=== PATIENT | male | born 1955 | race Caucasian/White ===

== ENCOUNTER → 2020-07-25 17:55 | Outpatient (BNVA) | payer MEDICARE, SELFPAY | PROVIDERS: PCP Physician Assistant Medical; Visit Provider Surgery | DX: Z20.828 Contact with and (suspected) exposure to other viral communicable diseases (principal); Z01.812 Encounter for preprocedural laboratory examination | CPT/HCPCS: 87635 ==

== ENCOUNTER 2020-07-29 09:05 | Day surgery (SDC) | payer MEDICARE, SELFPAY ==
[2020-07-29 09:16] VITALS: BP 134/73; PULSE 54; RESP 18; O2SAT 99
[2020-07-29 09:35] LABS: Glucose Point of Care 142 mg/dL (70-110)
[2020-07-29] MEDS: sodium chloride 0.9% 1,000 ML 30 ML IV (09:35)
--- NOTE | 2020-07-29 09:39 | ANES.PREANE2 ---
Pre-Anesthetic Assessment Pre-Anesthetic Assessment: Height/Weight: Height 1.7 m Weight 141.067 kg Pulse Resp BP Pulse Ox 54 L 18 134/73 99 07/29/20 09:16 07/29/20 09:16 07/29/20 09:16 07/29/20 09:16 Preop Diagnosis: hematochezia Proposed Procedure: Operation Date: 07/29/20 10:00 Proposed Procedures p Colonoscopy 80012 k92.1(Not Applicable) - Gordon Alcantara MD Familial anesthetic complications: None Was Beta Roni taken within 24 hours: Yes Last intake: Intake Last Liquid Date 07/28/20 Last Liquid Time 21:00 Last Solid Date 07/27/20 Social: Social History: No alcohol and No tobacco Comment: former smoker Exam: Pre-Anes Outpt Exam: alert, oriented x 3, clear to auscultation bilaterally and regular rate & rhythm Airway: Cervical ROM: WNL MP: 3 Dentition: False CV/HEM: CV/HEM: Afib, HTN, [place] (2-3 years ago) and PVD Comments: AAA ( mild) Stent in leg on plavix - last took 2 days ago echo 2013 - unremarkable Metabolic: Metabolic: DM, Hyperlipidemia and Morbid obesity Anesthetic Plan: ASA status: 3 Anesthesia: MAC Risk of > 500 ml blood loss (7ml/kg in children): No Meds/Allergies Current Medications: Current Medications Generic Name Dose Route Start Last Admin Trade Name Freq PRN Reason Stop Dose Admin Sodium Chloride 1,000 mls @ 30 ml s/hr 07/29/20 09:30 07/29/20 09:35 Sodium Chloride 0.9% IV 07/30/20 09:29 30 mls/hr .Q24H MANUEL Administration PFSH Anesthesia PFSH: Medical History (Updated 07/14/20 @ 13:49 by Gordon Alcantara MD) Diabetes mellitus Dyslipidemia HTN (hypertension), benign Surgical History (Updated 07/14/20 @ 11:18 by Gordon Alcantara MD) H/O circumcision H/O colonoscopy 2016 History of rectal surgery Family History Other CAD (coronary artery disease) Cancer Diabetes Hypertension Denies family history of Anesthesia complication Bleeding disorder Social History Smoking and tobacco status: never smoked Alcohol intake: current Alcohol intake frequency: holidays/special occasions only Household members: spouse Marital status: Current occupational status: disabled History of recent travel: No Data Anesthesia Other Labs: Laboratory Results - last 48 hr 07/29/20 09:30 POC Glucose 142 Cardiac Studies: No Data to Display
--- NOTE | 2020-07-29 09:52 | W.PM.OPSUD ---
Surgery/Procedure H&P Update DATE OF PROCEDURE: July 29, 2020 DATE H&P PERFORMED: 07/14/20 H&P UPDATE INFORMATION: I have reviewed H&P completed within last 30 days, I have examined patient prior to procedure and No changes to prior documentation PREOP DIAGNOSIS: hematochezia PLANNED PROCEDURE: Operation Date: 07/29/20 10:00 Proposed Procedures p Colonoscopy 84982 k92.1(Not Applicable) - Gordon Alcantara MD
[2020-07-29 11:16] VITALS: BP 175/92; PULSE 54; RESP 16; TEMP 36.2; O2SAT 97
--- NOTE | 2020-07-29 11:30 | ANE.PACU2 ---
Inpatient post-anesthesia follow up: Airway intact: Yes Vital signs: Temperature 97.1 F Pulse Rate 53 Respiratory Rate 18 Blood Pressure 147/77 Pulse Oximetry 97 Oxygen Delivery Me thod Room Air Oxygen Flow Rate 2 Fraction of Inspir ed Oxygen Hydration adequate: Yes Nausea and vomiting: No Pain level: 1 Mental status: Baseline
[2020-07-29 11:39] VITALS: BP 147/77; PULSE 53; RESP 18; O2SAT 97
== END 2020-07-29 11:45 | disposition home or self-care (01) ==
PROVIDERS: PCP Physician Assistant Medical; Visit Provider Surgery
PROC: 0DJD8ZZ Inspection of Lower Intestinal Tract, Via Natural or Artificial Opening Endoscopic (ICD-10-PCS; CPT 45378; principal; 2020-07-29 10:00)
DX: K92.1 Melena (principal); K57.30 Diverticulosis of large intestine without perforation or abscess without bleeding; K64.8 Other hemorrhoids; K63.5 Polyp of colon; Z87.891 Personal history of nicotine dependence; I48.91 Unspecified atrial fibrillation; I10 Essential (primary) hypertension; I25.2 Old myocardial infarction; Z79.02 Long term (current) use of antithrombotics/antiplatelets; E11.9 Type 2 diabetes mellitus without complications; E78.5 Hyperlipidemia, unspecified; E66.01 Morbid (severe) obesity due to excess calories; Z68.42 Body mass index [BMI] 45.0-49.9, adult
CPT/HCPCS: 12345; 36416; 45378; 82962; J7030

== ENCOUNTER 2021-01-27 10:43 | Observation (INO) | payer MEDICARE, SELFPAY ==
[2021-01-27] VITALS (31 sets, daily range): BP systolic 106–152; BP diastolic 70–98; PULSE 64–103; RESP 14–33; TEMP 36.5–36.7; O2SAT 95–99; BMI 40.7
--- NOTE | 2021-01-27 11:12 | XRR_ITS ---
PROCEDURE INFORMATION: Exam: XR Chest Exam date and time: 01/27/2021 11:32 AM Age: 65 years old Clinical indication: Pain; Chest pressure; Patient HX: Heart racing; Additional info: Chest pain TECHNIQUE: Imaging protocol: XR of the chest. Views: 1 view. COMPARISON: CR Chest 1 [place] [id number] 03/03/2018 11:46 PM FINDINGS: Lungs: Unremarkable. No consolidation. Pleural spaces: Unremarkable. No pleural effusion. No pneumothorax. Heart/Mediastinum: Unremarkable. No cardiomegaly. Bones/joints: Unremarkable. XR/XR chest 1V portable [id number] IMPRESSION: No acute findings.
--- NOTE | 2021-01-27 11:13 | ECG_ITS ---
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 Measurements Intervals [place] Rate: 84 P: [place]: QRS: 71 QRSD: 98 T: 51 QT: 365 QTc: 433 Interpretive Statements ATRIAL FIBRILLATION Compared to ECG 03/03/2018 23:50:13 Sinus rhythm no longer present Electronically Signed On 01-27-2021 18:56:37 CDT by Ladarius Willson M.D. [id number]
--- NOTE | 2021-01-27 11:21 | W.ED.GENADLT ---
HPI - General Adult General: Chief complaint: General Medical Stated complaint: SENT BY PCP/ABD EKG, CP, L ARM PAIN Time Seen by Provider: 01/27/21 10:47 History of Present Illness: HPI narrative: 65-year-old male comes in complaining of discomfort he was at his primary care doctor's office and an abnormal EKG and was sent here he has had a little bit of chest heaviness. He has a history of coronary disease and peripheral artery disease he is a former stroke smoker he still does chew tobacco he is diabetic. EKG from the primary care office has A. fib which according to the note from the PA who seen him is a new finding for him he does not have a history of A. fib. Onset (ago): hour(s) Location: chest Radiation: non-radiation Severity: mild Quality: aching Relieving factors: none Exacerbating factors: none Associated symptoms: Reports chest pain, malaise, nausea and weakness; Deny confusion, cough, diaphoresis, decreased appetite, dyspnea, fevers/chills, headache(s), rash, palpitations, seizures, short of breath, syncope or vomiting Treatments prior to arrival: none Review of Systems Const: Reports: malaise; Denies: diaphoresis ENMT: Denies: throat pain, ear or mastoid pain, nasal discharge or nasal congestion Card: Reports: chest pain; Denies: palpitations or syncope Resp: Denies: dyspnea GI: Reports: nausea; Denies: vomiting : Denies: flank pain, dysuria, urinary frequency or urinary urgency Skin/Breast: Denies: rash Neuro: Denies: headache(s) or confusion PFS ED PFSH: Medical History Diabetes mellitus Dyslipidemia HTN (hypertension), benign Surgical History H/O circumcision H/O colonoscopy (07/29/20) History of rectal surgery Family History Other CAD (coronary artery disease) Cancer Diabetes Hypertension Denies family history of Anesthesia complication Bleeding disorder Social History Smoking and tobacco status: never smoked Alcohol intake: current Alcohol intake frequency: holidays/special occasions only Household members: spouse Marital status: Current occupational status: disabled History of recent travel: No Physical Exam Const: COMMON NORMALS: no acute distress GENERAL APPEARANCE: cooperative and comfortable ORIENTATION/CONSCIOUSNESS: Yes awake, Yes oriented to person, Yes oriented to place and Yes oriented to time HENMT: COMMON NORMALS: normocephalic, atraumatic, hearing grossly normal bilaterally and external ears normal HEAD & SCALP: normocephalic and atraumatic EXTERNAL EAR: Yes external ears normal Neck/C-Spine: COMMON NORMALS: no JVD Resp: COMMON NORMALS: normal respiratory effort, No retractions, No use of accessory muscles and clear to auscultation bilaterally AUSCULTATION: clear to auscultation bilaterally Cardio: COMMON NORMALS: no JVD, regular rate, regular rhythm and No murmurs present (Cardio) RATE: regular rate RHYTHM: regular rhythm GI: COMMON NORMALS: Soft to palpation and No hepatosplenomegaly present AUSCULTATION: Yes normoactive bowel sounds PALPATION: Yes Soft to palpation, No Tenderness to palpation present (GI), No Guarding due to palpation present (GI) and Yes No hepatosplenomegaly present Extremity: COMMON NORMALS: normal to inspection, capillary refill normal, no clubbing, cyanosis or edema, no calf tenderness and no pedal edema Neuro: SENSORIUM/ORIENTATION: Yes oriented to person, Yes oriented to place and Yes oriented to time Skin: COMMON NORMALS: no rashes or lesions noted GENERAL SKIN EXAM: no rashes or lesions noted Course Vital Signs: Vital signs: Vital Signs Temperature 97.8 F 01/28/21 02:50 Pulse Rate 59 L 01/28/21 10:35 Respiratory Rate 16 01/28/21 10:35 Blood Pressure 135/75 01/28/21 10:35 Pulse Oximetry 99 01/28/21 10:35 MDM - General Adult MDM Narrative: Medical decision making narrative: Chest discomfort new onset A. fib we will go ahead and admit for work-up for the A. fib and evaluation for the chest discomfort. Lab Data: Labs: Lab Results 01/27/21 01/27/21 01/27/21 Range/Units 12:29 12:29 12:29 WBC 7.9 (4.0-10.0) 10^3/ uL RBC 5.10 (4.1-5.3) 10^6/u L Hgb 14.6 (11.7-16.6) g/dL Hct 45.6 (42.0-52.0) % MCV 89.4 (80-94) fL MCH 28.6 (28.0-34.0) pg MCHC 32.0 (30.0-36.0) g/dL RDW 13.3 (12.1-15.1) % Plt Count 178 (130-400) 10^3/c mm MPV 11.7 H (7.4-10.4) fL Neut % (Auto) 62.6 % Lymph % (Auto) 26.1 % [place] % (Auto) 8.9 % Eos % (Auto) 1.7 % Baso % (Auto) 0.4 % Neut # (Auto) 4.93 (1.8-7.7) 10^3/u L Lymph # (Auto) 2.1 (0.8-4.8) 10^3/u L [place] # (Auto) 0.7 (0.2-0.9) 10^3/u L Eos # (Auto) 0.1 (0.0-0.8) 10^3/u L Baso # (Auto) 0.0 (0.0-0.1) 10^3/u L Nucleated RBC % (a uto) 0 % Nucleated RBCs # 0.0 /100WBC Sodium 138 (136-145) mmol/L Potassium 4.8 (3.5-5.1) mmol/L Chloride 101 (98-107) mmol/L Carbon Dioxide 25 (22-29) mmol/L Anion Gap 16.8 (5-19) BUN 16 (8-23) mg/dL Creatinine 0.8 (0.7-1.2) mg/dL GFR Calculation 97.0 (90-130) mL/min Glucose 122 H (65-115) mg/dL Calculated Osmolal ity 288 (285-295) mOsm/k g Calcium 9.0 (8.5-10.5) mg/dL Total Bilirubin 0.4 (0.15-1.2) mg/dL AST 19 (0-40) U/L ALT 24 (0-41) U/L Alkaline Phosphata se 61 (40-130) IU/L Troponin T Baselin e 9 (0-15) ng/L Troponin T 120 Min [place] (0-15) ng/L Delta Troponin T (0-10) ABS# Troponin T Hi Sens 6Hr (0-15) ng/L Troponin T Hi Sens 6Hr Delta (0-12) ng/L NT-Pro-B Natriuret Pep (0-125) pg/mL Total Protein 7.0 (6.6-8.7) g/dL Albumin 4.2 (3.5-5.2) g/dL Globulin 2.8 (1.3-4.6) g/dL Lipase 47 (13-60) U/L 01/27/21 01/27/21 01/27/21 Range/Units 14:33 14:33 18:37 WBC (4.0-10.0) 10^3/ uL RBC (4.1-5.3) 10^6/u L Hgb (11.7-16.6) g/dL Hct (42.0-52.0) % MCV (80-94) fL MCH (28.0-34.0) pg MCHC (30.0-36.0) g/dL RDW (12.1-15.1) % Plt Count (130-400) 10^3/c mm MPV (7.4-10.4) fL Neut % (Auto) % Lymph % (Auto) % [place] % (Auto) % Eos % (Auto) % Baso % (Auto) % Neut # (Auto) (1.8-7.7) 10^3/u L Lymph # (Auto) (0.8-4.8) 10^3/u L [place] # (Auto) (0.2-0.9) 10^3/u L Eos # (Auto) (0.0-0.8) 10^3/u L Baso # (Auto) (0.0-0.1) 10^3/u L Nucleated RBC % (a uto) % Nucleated RBCs # /100WBC Sodium (136-145) mmol/L Potassium (3.5-5.1) mmol/L Chloride (98-107) mmol/L Carbon Dioxide (22-29) mmol/L Anion Gap (5-19) BUN (8-23) mg/dL Creatinine (0.7-1.2) mg/dL GFR Calculation (90-130) mL/min Glucose (65-115) mg/dL Calculated Osmolal ity (285-295) mOsm/k g Calcium (8.5-10.5) mg/dL Total Bilirubin (0.15-1.2) mg/dL AST (0-40) U/L ALT (0-41) U/L Alkaline Phosphata se (40-130) IU/L Troponin T Baselin e (0-15) ng/L Troponin T 120 Min [place] 7.76 (0-15) ng/L Delta Troponin T -1.24 L (0-10) ABS# Troponin T Hi Sens 6Hr 7.02 (0-15) ng/L Troponin T Hi Sens 6Hr Delta -1.98 L (0-12) ng/L NT-Pro-B Natriuret Pep 684 H (0-125) pg/mL Total Protein (6.6-8.7) g/dL Albumin (3.5-5.2) g/dL Globulin (1.3-4.6) g/dL Lipase (13-60) U/L Discharge Plan Discharge Patient Disposition: Admitted As Inpatient Admit Provider: Rach Ndiaye Clinical Impression: Afib, Chest pain Condition: Stable Coding Level of Care Code ED Field Reviewer for Amy Salomon
[2021-01-27 12:46] LABS: Basophils % 0.4 %; Eosinophils # 0.1 10^3/uL (0.0-0.8); Eosinophils % 1.7 %; Hematocrit 45.6 % (42.0-52.0); Hemoglobin 14.6 g/dL (11.7-16.6); Lymphocytes # 2.1 10^3/uL (0.8-4.8); Lymphocytes % 26.1 %; Mean Corpuscular Hemoglobin 28.6 pg (28.0-34.0); Mean Corpuscular Volume 89.4 fL (80-94); Mean Platelet Volume 11.7 fL (7.4-10.4); Monocytes # 0.7 10^3/uL (0.2-0.9); Monocytes % 8.9 %; Neutrophils # 4.93 10^3/uL (1.8-7.7); Neutrophils % 62.6 %; Nucleated Red Blood Cells % 0 %; Red Cell Distribution Width 13.3 % (12.1-15.1); White Blood Count 7.9 10^3/uL (4.0-10.0)
--- NOTE | 2021-01-27 13:13 | ECG_ITS ---
[facility] Test Date: 2021-01-27 Pat Name: Regis Fuentes Department: Room: Gender: Male Director Of Collections: : 1955 Requested By: Moreno Goodwin Order Number: [id number] Jesús MD: Ladarius Willson M.D. Measurements Intervals [place] Rate: 83 P: [place]: QRS: 67 QRSD: 97 T: 58 QT: 365 QTc: 430 Interpretive Statements ATRIAL FIBRILLATION Compared to ECG 01/27/2021 11:42:16 No significant changes Electronically Signed On 01-27-2021 19:13:48 CDT by Ladarius Willson M.D. [email or web address].[id number]
[2021-01-27 13:20] LABS: Troponin(5th) Baseline 9 ng/L (0-15)
[2021-01-27 13:21] LABS: Platelet Count 178 10^3/cmm (130-400); Slide Review Slide Review Perform
[2021-01-27 14:18] LABS: Alanine Aminotransferase 24 U/L (0-41); Albumin Level 4.2 g/dL (3.5-5.2); Alkaline Phosphatase 61 IU/L (40-130); Anion Gap 16.8 (5-19); Aspartate Amino Transferase 19 U/L (0-40); Blood Urea Nitrogen 16 mg/dL (8-23); Carbon Dioxide 25 mmol/L (22-29); Chloride 101 mmol/L (98-107); Globulin 2.8 g/dL (1.3-4.6); Glucose 122 mg/dL (65-115); Lipase 47 U/L (13-60); Osmolality Calculated 288 mOsm/kg (285-295); Potassium 4.8 mmol/L (3.5-5.1); Sodium 138 mmol/L (136-145); Total Bilirubin 0.4 mg/dL (0.15-1.2)
[2021-01-27 14:57] LABS: Troponin 5 2HR 7.76 ng/L (0-15); Troponin 5 2HR Delta -1.24 ABS# (0-10)
--- NOTE | 2021-01-27 17:13 | ECG_ITS ---
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 Measurements Intervals [place] Rate: 78 P: [place]: QRS: 74 QRSD: 97 T: 50 QT: 356 QTc: 407 Interpretive Statements ATRIAL FIBRILLATION Compared to ECG 01/27/2021 13:41:00 No significant changes Electronically Signed On 01-27-2021 19:12:50 CDT by Ladarius Willson M.D. [id number]
--- NOTE | 2021-01-27 18:26 | PM.HP ---
Providers/Chief Complaint Admitting Physician: Rach Ndiaye MD Primary Care Provider: Johnnie Grimaldo Chief Complaint: SENT BY PCP/ABD EKG, CP, L ARM PAIN History of Present Illness Regis Fuentes is a 65 year old male with PMH as noted below presented to his PCP today with c/o vague chest discomfort described as quesy and left arm pain that started on Tuesday, intermittent, no apparent triggering or relieving factors. Reports subjective dyspnea. No orthopnea or PND. EKG showed A fib, rate controlled. Troponin series without significant delta. B/L LE chronic edema from venous insufficiency, no recent change Review of Systems General: Reports: 10 or more systems reviewed and unremarkable except in HPI and below Const: Denies: fever(s), chills or body aches Eyes: Denies: change in vision, blurry vision or photophobia ENMT: Reports: hoarseness; Denies: throat pain, enlarged tonsils, odynophagia or nasal congestion Card: Denies: chest pain, palpitations, irregular heart rhythm, edema, swelling of feet/ankles, lightheadedness, pre-syncope, dyspnea on exertion or orthopnea Resp: Denies: dyspnea, productive cough, non-productive cough, wheezing, stridor, pain on inspiration, change in phlegm color, hemoptysis or chest congestion GI: Denies: abdominal pain, nausea, vomiting, hematemesis, coffee ground emesis, dysphagia, heartburn, diarrhea, constipation, GI cramping, change in stool character, hematochezia or melena : Denies: flank pain, dysuria, urinary frequency, urinary urgency, urinary hesitancy or hematuria Musc: Denies: neck pain, back pain, extremity pain, joint swelling, joint warmth or deformity Neuro: Denies: headache(s), numbness in extremities, weakness in extremities, sensory changes, difficulty walking, frequent falls, dizziness, vertigo, behavioral changes, Slurred speech present or seizure-like activity Psych: Denies: anxiety, depression, suicidal ideation or homicidal ideation Endo: Denies: polyuria, polydipsia, tired all the time, cold intolerance or hot flashes Mitch/Lymph: Denies: easy bruising or easy bleeding Medications/Allergies Home Medications Medication Instructions Recorded Confirmed Last Taken Type clopidogrel 75 mg tablet 75 mg PO QPM 07/14/20 01/27/2101/26/21 History fluticasone propionate 50 1 spray INTRANASAL BID PRN 07/14/20 01/27/21 Unknown History mcg/actuation nasal spray,suspension furosemide 20 mg tablet 20 mg PO QAM 07/14/20 01/27/21 01/27/21 08:00 History glipizide 10 mg tablet 10 mg PO BID 07/14/20 01/27/21 01/27/21 08:00 History lisinopril 5 mg tablet 5 mg PO QPM 07/14/20 01/27/21 01/26/21 History meclizine 25 mg tablet 25 mg PO PRN PRN 07/14/20 01/27/21 07/20/20 History metformin 1,000 mg tablet 1,000 mg PO BID 07/14/20 01/27/21 01/27/21 08:00 History metoprolol tartrate 25 mg tablet 25 mg PO BID 07/14/20 01/27/21 01/27/21 08:00 History simvastatin 20 mg tablet 20 mg PO BEDTIME 07/14/20 01/27/21 01/26/21 History epinephrine [EpiPen] 0.3 mg IM PRN 01/27/21 01/27/21 Unknown History hydrocodone-acetaminophen [[place]] 1 tab PO Q6H PRN 01/27/21 01/27/21 Unknown History multivitamin 1 tab PO DAILY 01/27/21 01/27/21 Unknown History ropinirole 5 mg PO BEDTIME 01/27/21 01/27/21 01/26/21 History sitagliptin [Januvia] 50 mg PO QAM 01/27/21 01/27/21 01/27/21 History Allergies Allergy/AdvReac Type Severity Reaction Status Date / Time Penicillins Allergy ALGY-Anaphy Verified 01/27/21 13:07 laxis PFSH Acute PFSH: Medical History Diabetes mellitus Dyslipidemia HTN (hypertension), benign Surgical History H/O circumcision H/O colonoscopy (07/29/20) History of rectal surgery Family History Other CAD (coronary artery disease) Cancer Diabetes Hypertension Denies family history of Anesthesia complication Bleeding disorder Social History Smoking and tobacco status: never smoked Alcohol intake: current Alcohol intake frequency: holidays/special occasions only Household members: spouse Marital status: Current occupational status: disabled History of recent travel: No Vitals/I&O/Wt Last Vital Signs Temp 97.7 F 01/27/21 11:01 Pulse 85 01/27/21 15:37 Resp 16 01/27/21 15:37 BP 112/82 01/27/21 15:37 Pulse Ox 99 01/27/21 15:37 Weight last 48 hrs Weight 117.934 kg Physical Exam Narrative: EXAM NARRATIVE: General: No acute distress, AO x3 HEENT: PERRLA, pupils bilaterally equal and reactive, pallors not present Chest: Normal vesicular breath sounds, no added sounds, equal good air entry bilaterally CVS: S1-S2 regular, no murmurs, no tachycardia, no gallops, no rubs Abdomen: Soft, nontender, no organomegaly, bowel sounds present Neuro: No focal deficits, no facial deformity, AO x3, power 5/5 in all limbs Extremities: B/L LE edema and changes of venous stasis, left > right Data : 01/27/21 12:29 01/27/21 12:29 A&P Assessment and plan (1) Afib: A fib, rate controlled, new per history Troponin without significant delta EKG without acute t wave changes will likely need to start a/c Status: Acute (2) Chest pain: stress test in am Status: Acute Attestations Medical Necessity Statement*: observation admission , expect less than 2 MN stay Coding Level of Care Code Acute Optometrist Owner for Chg Fwd Diagnoses Afib I48.91 Chest pain R07.9
[2021-01-27 18:58] LABS: NT Pro B Type Natriuretic Pept 684 pg/mL (0-125)
[2021-01-27 18:59] LABS: Troponin 5 6HR 7.02 ng/L (0-15)
[2021-01-27 19:01] LABS: Troponin 5 6HR Delta -1.98 ng/L (0-12)
--- NOTE | 2021-01-27 19:24 | ECG_ITS ---
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 Interpretive Statements NAME OF STUDY: LEXISCAN SESTAMIBI STRESS TEST INDICATION: Chest Pain PROCEDURE: At the baseline, the EKG revealed sinus bradycardia with a heart rate of [address]-T changes. The baseline blood pressure was 126/63 mm Hg with a heart rate of 59 beats/min. Lexiscan was infused over a period of 20 seconds. A total of 0.4 milligrams of Lexiscan was infused. The stress phase was continued for a total of 5 minutes. Heart rate at the end of the stress phase was 68 with a blood pressure 103/53. The EKG at the peak infusion revealed no significant changes. Sestamibi was injected 20 seconds after the Lexiscan infusion. Blood pressure at the end of the recovery phase was 100/48 with a heart rate of 68 per minute. CONCLUSION: 1. No significant EKG changes with the LexiScan infusion 2. No LexiScan induced chest pain or cardiac arrhythmia 3. Normal blood pressure and heart rate response 4. Sestamibi/sestamibi perfusion scan pending; see separate report. Electronically Signed On 01-29-2021 16:57:29 CDT by Percy Hurt M.D. [email or web address] [email or web address]/[id number]
[2021-01-27] MEDS: ropinirole 2 mg Tablet 5 MG PO (23:01)
[2021-01-27 23:10] LABS: Glucose Point of Care 170 mg/dL (70-110)
[2021-01-27 23:24] LABS: D Dimer 0.54 ug/mIFEU (0-0.59)
[2021-01-28] VITALS (150 sets, daily range): BP systolic 100–166; BP diastolic 48–94; PULSE 56–102; RESP 10–26; TEMP 36.6–36.8; O2SAT 87–100
[2021-01-28 05:33] LABS: Basophils % 0.4 %; Eosinophils # 0.2 10^3/uL (0.0-0.8); Hematocrit 41.4 % (42.0-52.0); Hemoglobin 13.4 g/dL (11.7-16.6); Lymphocytes % 26.7 %; Mean Corpuscular HGB Conc 32.4 g/dL (30.0-36.0); Mean Corpuscular Hemoglobin 28.7 pg (28.0-34.0); Mean Corpuscular Volume 88.7 fL (80-94); Mean Platelet Volume 11.9 fL (7.4-10.4); Monocytes # 0.8 10^3/uL (0.2-0.9); Monocytes % 10.8 %; Neutrophils # 4.48 10^3/uL (1.8-7.7); Neutrophils % 59.8 %; Nucleated Red Blood Cells % 0 %; Platelet Count 174 10^3/cmm (130-400); Red Blood Count 4.67 10^6/uL (4.1-5.3); Red Cell Distribution Width 13.3 % (12.1-15.1); White Blood Count 7.5 10^3/uL (4.0-10.0)
[2021-01-28 06:07] LABS: Alanine Aminotransferase 18 U/L (0-41); Albumin Level 3.7 g/dL (3.5-5.2); Alkaline Phosphatase 50 IU/L (40-130); Anion Gap 14.6 (5-19); Aspartate Amino Transferase 16 U/L (0-40); Blood Urea Nitrogen 18 mg/dL (8-23); Carbon Dioxide 26 mmol/L (22-29); Chloride 101 mmol/L (98-107); Globulin 2.5 g/dL (1.3-4.6); Glucose 185 mg/dL (65-115); Osmolality Calculated 291 mOsm/kg (285-295); Potassium 4.6 mmol/L (3.5-5.1); Sodium 137 mmol/L (136-145); Total Bilirubin 0.4 mg/dL (0.15-1.2); Total Protein 6.2 g/dL (6.6-8.7)
[2021-01-28] MEDS: regadenoson 0.4 Mg/5 ml Syringe IVP (08:29)
--- NOTE | 2021-01-28 08:29 | SUR.PREOP ---
Patient reports no pain or discomfort prior to the start of the procedure.
--- NOTE | 2021-01-28 10:50 | PC.CHAP ---
Pastoral Care Encounter/Spiritual Assessment Type of Contact [] Declined soap mixer visit [] Patient/Family/Request visit [] Outpatient visit [] Follow-up visit [] Physician referral [] Code/Alert [x] Routine visit [] Staff referral [] Actively dying [] Patient sleeping [x] Family support [] [x] Out of room [] Palliative care [] [] Receiving care in room [] Pre-surgical visit [] Trauma [] Long length of stay [x] ICU visit [x] Other: stress test Relational/Emotional Strength [] Patient feels connected with others/family/visitors/staff [] Distress [] Loneliness/isolation [] Abandonment Spirituality of Patient [] Person of Ambar [] Attends Confucianism of their Ambar [] Believes in Prayer [] Reads Bible or Yazidism materials [] There are Spiritual issues to be addressed Feller Seam Operator Interventions [x] Prayer [] Active listening [] Non-anxious presence [] Spiritual/emotional support [] Crisis/trauma care [] Spiritual counseling [] Bereavement support [] Provided bereavement packet [] Provided Bible/devotional materials [] Provided toy/stuffed animal, coloring book to patient or family member [] Provided Communion [] Anointing/[place] [] Salvation [x] Completed spiritual assessment [] Other: Impact on Illness or Injury [] Angry [] Fearful [] Anxious [] Often cries [] Exhaustion [] Unable to work [] Unable to attend cheondoism [] Unable to walk/stand [] Unable to read [] Unable to drive [] Unable to eat/drink [] Unable to sleep [] Unable to be with family [] Patient intubated [] Other: Summary Time spent with patient
[2021-01-28 11:30] LABS: Glucose Point of Care 180 mg/dL (70-110)
[2021-01-28] MEDS: FUROsemide 10 mg/mL SDV 4mL 40 MG IVP (15:43)
[2021-01-28 18:00] LABS: Glucose Point of Care 189 mg/dL (70-110)
[2021-01-28] MEDS: clopidogrel 75 mg Tablet PO (18:11)
[2021-01-28] MEDS: lisinopril 5 mg Tablet PO (18:11)
[2021-01-28] MEDS: metoprolol tartrate 25 mg Tablet PO (18:11)
--- NOTE | 2021-01-28 18:24 | USCV_ITS ---
Regis Fuentes Age: 65 Gender: M : 1955 Exam Date: 01/28/2021 06:27 Ordering Phys: Rach Ndiaye MD Technologist: Shayla Alaniz Exam Location: [facility] [place] Indication: NEW ONSET OF A FIB BP: 115 / 53 HR: 61 Rhythm: Sinus Technical Quality: Adequate MEASUREMENTS (Male / Female) Normal Values 2D ECHO LV Diastolic Diameter PLAX 4.6 cm 4.2 - 5.9 / 3.9 - 5.3 cm LV Systolic Diameter PLAX 2.1 cm IVS Diastolic Thickness 1.4 cm 0.6 - 1.0 / 0.6 - 0.9 cm IVS Systolic Thickness 2.1 cm LVPW Diastolic Thickness 1.2 cm 0.6 - 1.0 / 0.6 - 0.9 cm LVPW Systolic Thickness 2.0 cm RV Chamber Size 3.9 cm LVOT Diameter 2.0 cm LV Ejection Fraction 2D Teich 85.7 % LV Ejection Fraction MOD 2C 51.3 % LV Ejection Fraction 2C AL 51.2 % LA Diameter 3.4 cm LA Width 3.6 cm LA Height 5.0 cm RA Width 4.2 cm RA Height 4.6 cm Aorta at Sinotubular Diameter 2.8 cm M-MODE LV Diastolic Diameter MM 4.2 cm 4.2 - 5.9 / 3.9 - 5.3 cm LV Systolic Diameter MM 2.6 cm LV Ejection Fraction MM Teich 66.7 % IVS Diastolic Thickness MM 1.6 cm 0.6 - 1.0 / 0.6 - 0.9 cm IVS Systolic Thickness MM 1.8 cm LVPW Diastolic Thickness MM 1.3 cm 0.6 - 1.0 / 0.6 - 0.9 cm LVPW Systolic Thickness MM 1.6 cm Aortic Annulus Diameter 2.8 cm LA Ao Ratio MM 1.2 MV E Point Septal Separation 0.5 cm DOPPLER AV Peak Velocity 174.0 cm/s LVOT Peak Velocity 137.0 cm/s AV Area Cont Eq vti 2.5 cm squared AV Area Cont Eq pk 2.5 cm squared MV Area PHT 4.3 cm squared Mitral E to A Ratio 1.8 MV E' Velocity 58.5 cm/s Mitral E to MV E' Ratio 9.6 Mitral E to LV E' Lateral Ratio 8.9 Mitral E to LV E' Septal Ratio 10.6 TR Peak Velocity 256.0 cm/s TR Peak Gradient 26.2 mmHg TV Peak E Velocity 85.0 cm/s Right Atrial Pressure 3.0 mmHg Pulmonary Artery Systolic Pressu 29.2 mmHg PV Peak Velocity 112.7 cm/s RV Acceleration Time 0.1 s RV Ejection Time 0.3 s RV AcT/ET 0.3 FINDINGS Left Ventricle Normal left ventricular size. LV systolic function with EF of 55-60%. No regional wall motion abnormalities. Normal diastolic filling pattern. Right Ventricle The right ventricle is normal in size and function. Right Atrium The right atrium is normal in size. Left Atrium The left atrium is normal in size. Mitral Valve Structurally normal mitral valve without significant stenosis or prolapse. There is trace mitral regurgitation. Aortic Valve Structurally normal aortic valve without significant sclerosis or stenosis. There is no aortic regurgitation. Tricuspid Valve Structurally normal tricuspid valve without significant stenosis or regurgitation. Insufficient TR jet to calculate RVSP Pulmonic Valve Structurally normal pulmonic valve without significant stenosis. There is no pulmonic regurgitation. Pericardium Normal pericardium without effusion. Aorta Normal ascending aorta dimension. CONCLUSIONS LV systolic function is normal with EF of 55-60% Diastolic function is normal Trace mitral regurgitation Compared to prior echocardiogram from 2013, no signficant changes are noted Ladarius Willson MD (Electronically Signed) Final Date: 30 January 2021 11:42 S
--- NOTE | 2021-01-28 18:35 | PM.CONSULT ---
Providers/Reason For Consult Consulting Physician/Specialty*: Ladarius Willson MD/Cardiology Reason for Consult*: Chest pain/abnormal stress test Requesting Physician: Dr Ndiaye Attending Physician: Rach Ndiaye MD Primary Care Provider: Johnnie Grimaldo History of Present Illness History of Present Illness Regis Fuentes is a 65 year old male with PMH of diabetes, peripheral artery disease, hypertension has been having on and off chest discomfort. However, one episode got him concerned when he had pressure feeling in the chest with radiation to left arm. Reports dyspnea. No orthopnea or PND. EKG showed A fib, rate controlled. This is new onset for him. Troponin series without significant delta. Patient had a stress test that was abnormal in the LCx/RCA territory. Review of Systems General: Reports: 10 or more systems reviewed and unremarkable except in HPI and below Const: Denies: fever(s), chills or body aches Eyes: Denies: change in vision, blurry vision or photophobia ENMT: Reports: hoarseness; Denies: throat pain, enlarged tonsils, odynophagia or nasal congestion Card: Reports: chest pain; Denies: palpitations, irregular heart rhythm, edema, swelling of feet/ankles, lightheadedness, pre-syncope, dyspnea on exertion or orthopnea Resp: Denies: dyspnea, productive cough, non-productive cough, wheezing, stridor, pain on inspiration, change in phlegm color, hemoptysis or chest congestion GI: Denies: abdominal pain, nausea, vomiting, hematemesis, coffee ground emesis, dysphagia, heartburn, diarrhea, constipation, GI cramping, change in stool character, hematochezia or melena : Denies: flank pain, dysuria, urinary frequency, urinary urgency, urinary hesitancy or hematuria Musc: Denies: neck pain, back pain, extremity pain, joint swelling, joint warmth or deformity Neuro: Denies: headache(s), numbness in extremities, weakness in extremities, sensory changes, difficulty walking, frequent falls, dizziness, vertigo, behavioral changes, Slurred speech present or seizure-like activity Psych: Denies: anxiety, depression, suicidal ideation or homicidal ideation Endo: Denies: polyuria, polydipsia, tired all the time, cold intolerance or hot flashes Mitch/Lymph: Denies: easy bruising or easy bleeding Meds/Allergies Home Medications and Allergies Home Medications Medication Instructions Recorded Confirmed Last Taken Type clopidogrel 75 mg tablet 75 mg PO QPM 07/14/20 01/27/21 01/26/21 History fluticasone propionate 50 1 spray INTRANASAL BID PRN 07/14/20 01/27/21 Unknown History mcg/actuation nasal spray,suspension furosemide 20 mg tablet 20 mg PO QAM 07/14/20 01/27/21 01/27/21 08:00 History glipizide 10 mg tablet 10 mg PO BID 07/14/20 01/27/21 01/27/21 08:00 History lisinopril 5 mg tablet 5 mg PO QPM 07/14/20 01/27/21 01/26/21 History meclizine 25 mg tablet 25 mg PO PRN PRN 07/14/20 01/27/21 07/20/20 History metformin 1,000 mg tablet 1,000 mg PO BID 07/14/20 01/27/21 01/27/21 08:00 History metoprolol tartrate 25 mg tablet 25 mg PO BID 07/14/20 01/27/21 01/27/21 08:00 History simvastatin 20 mg tablet 20 mg PO BEDTIME 07/14/20 01/27/21 01/26/21 History epinephrine [EpiPen] 0.3 mg IM PRN 01/27/21 01/27/21 Unknown History hydrocodone-acetaminophen [Vanderwagen] 1 tab PO Q6H PRN 01/27/21 01/27/21 Unknown History multivitamin 1 tab PO DAILY 01/27/21 01/27/21 Unknown History ropinirole 5 mg PO BEDTIME 01/27/21 01/27/21 01/26/21 History sitagliptin [Januvia] 50 mg PO QAM 01/27/21 01/27/21 01/27/21 History Allergies Allergy/AdvReac Type Severity Reaction Status Date / Time Penicillins Allergy ALGY-Anaphy Verified 01/27/21 13:07 laxis Current Medications Current Medications Generic Name Dose Route Start Last Admin Trade Name Freq PRN Reason Stop Dose Admin Clopidogrel Bisulfate 75 mg 01/28/21 18:00 01/28/21 18:11 Clopidogrel 75 Mg Tablet PO 75 mg QPM MANUEL Administration Furosemide 20 mg 01/28/21 06:00 01/28/21 07:33 Furosemide 20 Mg Tablet PO Not Given QAM MANUEL Insulin Aspart 0 unit 01/27/21 21:59 01/28/21 18:13 Insulin Aspart 100 Unit/1 Ml SUBCUT Not Given WM&BEDTIME MANUEL Protocol Lisinopril 5 mg 01/28/21 18:00 01/28/21 18:11 Lisinopril 5 Mg Tablet PO 5 mg QPM MANUEL Administration Metoprolol Tartrate 25 mg 01/28/21 09:00 01/28/21 18:11 Metoprolol Tartrate 25 Mg Tablet PO 25 mg BID MANUEL Administration Ropinirole HCl 5 mg 01/27/21 22:30 01/27/21 23:01 Ropinirole 2 Mg Tablet PO 5 mg BEDTIME MANUEL Administration PFSH Acute PFSH: Medical History (Updated 01/29/21 @ 06:24 by Ladarius Willson M.D) Diabetes mellitus Dyslipidemia HTN (hypertension), benign Surgical History H/O circumcision H/O colonoscopy (07/29/20) History of rectal surgery Family History Other CAD (coronary artery disease) Cancer Diabetes Hypertension Denies family history of Anesthesia complication Bleeding disorder Social History Smoking and tobacco status: never smoked Alcohol intake: current Alcohol intake frequency: holidays/special occasions only Household members: spouse Marital status: Current occupational status: disabled History of recent travel: No Vitals/I&O/Wt Last Vital Signs Temp 97.8 F 01/28/21 02:50 Pulse 60 01/28/21 17:00 Resp 15 01/28/21 17:00 BP 140/80 01/28/21 17:00 Pulse Ox 97 01/28/21 17:00 01/28/21 01/28/21 01/28/21 06:59 14:59 22:59 Intake Total 480 / 480 720 / 720 240 / 960 Output Total 1750 / 1750 Balance 480 / 480 720 / 720 -1510 / -790 Weight last 48 hrs Weight 260 lb Physical Exam Narrative: EXAM NARRATIVE: GENERAL: Patient is alert, awake and oriented x3. [] NECK: No jugular vein distension. [] HEENT: No cyanosis. No icterus. No pallor. [] HEART: Regular S1 and S2. No murmur, rub or gallop. [] LUNGS: Clear to auscultate bilaterally. [] ABDOMEN: Soft, nontender and nondistended. Positive bowel sounds. No guarding, rebound or tenderness. [] CENTRAL NERVOUS SYSTEM: Grossly nonfocal. [] EXTREMITIES: Lower extremities with 1+ edema bilaterally. Pulses palpable in the lower extremities, both dorsalis pedis and posterior tibial. [] A&P Assessment and plan (1) Chest pain: Status: Acute (2) Afib: Status: Acute (3) Abnormal stress test: Status: Acute (4) HTN (hypertension), benign: Status: Acute (5) Diabetes mellitus: Status: Acute Patient has multiple coronary artery disease risk factors including hypertension, hyperlipidemia, diabetes and peripheral artery disease and has presented with chest pain. He had an abnormal stress test. Plan for left heart cath with possible percutaneous coronary intervention tomorrow. Keep patient n.p.o. Echo ordered Patient has new onset A. fib. It is rate controlled. Continue current medications. After the coronary angiogram was performed, he will need initiation of anticoagulation for his A. fib his chads vas score is high. Continue Plavix Thank you for involving us with the care of this patient. We will continue to follow. Please call with questions. 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
--- NOTE | 2021-01-28 19:24 | USCV_ITS ---
Regis Fuentes Age: 65 Gender: M : 1955 Exam Date: 01/28/2021 06:51 Ordering Phys: Rach Ndiaye MD Technologist: FRANKY [place] [facility] [place]: EVAL FOR DVT HISTORY: Lower extremity swelling. PROCEDURES: Venous duplex imaging was performed in bilateral lower extremities. The following venous structures were evaluated: common femoral vein, profunda vein, proximal portion of the greater saphenous vein, superficial femoral vein, and the popliteal vein. In addition, the posterior tibial and peroneal trunk were evaluated. Serial compression, augmentation maneuvers, and spectral Doppler flow evaluation were performed. FINDINGS: No evidence of DVT seen in any vessel visualized at this time. Examination was technically limited due to body habitus. CONCLUSIONS No evidence of right lower extremity DVT. No evidence of left lower extremity DVT. Felipe Bray MD (Electronically Signed) Final Date: 28 January 2021 09:58 S
--- NOTE | 2021-01-28 19:25 | NMCV_ITS ---
NM bret perf SPECT r/s* [id number] Regis Fuentes Age: 65 Gender: M : 1955 Exam Date: 01/28/2021 07:23 Ordering Phys: Rach Ndiaye MD Technologist: JULIANE Bartholomew Exam Location: [facility] Indications: ABN EKG, CHEST PAIN, L ARM PAIN STRESS TEST Please see separate stress test report in [facility] for full findings IMAGE PROTOCOL Rest/Stress 1 Lexiscan Day Radiopharmaceutical Dose (mCi) Administration Site Administered by Rest: Tc-99m 11.0 IV JULIANE Saenz Sestamibi Stress:Tc-99m 33.0 IV JULIANE Saenz Sestamibi Rest: 28-Jan-2021 60 Discovery 630 Stress: 28-Jan-2021 30 Discovery 630 0.4mg Lexiscan. Images obtained in supine and prone position. SPECT RESULTS Technical Quality: Excellent Raw Data Analysis: Normal Image Corrections: No attenuation or motion correction applied Summed Stress Score: 5 Summed Rest Score: 1 Summed Difference Score: 4 PERFUSION FINDINGS Moderate area of decreased tracer uptake in the basal ,mid and apical inferior and mid inferolateral segments. Some reversibility was noted in in the basal and mid inferior region, the supine imaging. However with the prone imaging, there was no significant reversibility's. FUNCTIONAL RESULTS (calculated via Gated SPECT) Stress Image LV EF (%): 73 Stress EDV (mL):124 TID: 1.04 Stress ESV (mL):33 FUNCTIONAL FINDINGS: Segmental wall motion analysis revealing no gross wall motion abnormalities IMPRESSIONS 1. Myocardial perfusion imaging revealing small to moderate area of decreased tracer uptake in the inferior wall and inferolateral regions, with some reversibility, suggestive of myocardial scarring with ischemia in the distribution of the right coronary artery/circumflex artery. However because of the inconsistency with the prone imaging, the reliability of this finding is questionable. 2. Normal LV ejection fraction 73%. 3. LV wall motion analysis revealing no gross wall motion normalities. 4. Normal LV volume. No similar previous studies are available for comparison Dr Percy Hurt MD [facility] (Electronically Signed) Final Date: 28 January 2021 14:17 S
[2021-01-28 20:23] LABS: Glucose Point of Care 233 mg/dL (70-110)
[2021-01-28] MEDS: atorvastatin 40 mg Tablet 20 MG PO (20:23)
[2021-01-28] MEDS: ropinirole 2 mg Tablet 5 MG PO (20:23)
--- NOTE | 2021-01-28 22:45 | PM.PN ---
Subjective Subjective: Interval history: chest pain better, stress test reported abnormal today Vitals/I&O/Wt Last Vital Signs Temp 98.3 F 01/28/21 20:00 Pulse 61 01/28/21 20:00 Resp 20 H 01/28/21 20:00 BP 121/72 01/28/21 20:00 Pulse Ox 100 01/28/21 20:00 01/28/21 01/28/21 01/28/21 06:59 14:59 22:59 Intake Total 480 / 480 720 / 720 240 / 960 Output Total 1750 / 1750 Balance 480 / 480 720 / 720 -1510 / -790 Weight last 48 hrs Weight 117.934 kg Physical Exam Narrative: EXAM NARRATIVE: General: No acute distress, AO x3 HEENT: PERRLA, pupils bilaterally equal and reactive, pallors not present Chest: Normal vesicular breath sounds, no added sounds, equal good air entry bilaterally CVS: S1-S2 regular, no murmurs, no tachycardia, no gallops, no rubs Abdomen: Soft, nontender, no organomegaly, bowel sounds present Neuro: No focal deficits, no facial deformity, AO x3, power 5/5 in all limbs Extremities: B/L LE edema and changes of venous stasis, left > right Data : 01/28/21 04:36 01/28/21 04:36 A&P Assessment and plan (1) Afib: A fib, rate controlled, new per history Troponin without significant delta EKG without acute t wave changes will likely need to start a/c Status: Acute (2) Chest pain: stress test abnormal cardiology consult Status: Acute Attestations Medical Necessity Statement*: pending cardiology consult Coding Level of Care Code Acute Oleo Hasher And Renderer for g Fwd Diagnoses Afib I48.91 Chest pain R07.9
[2021-01-29] VITALS (15 sets, daily range): BP systolic 101–160; BP diastolic 53–89; PULSE 55–65; RESP 12–19; TEMP 36.6–36.8; O2SAT 92–98
[2021-01-29] MEDS: diphenhydrAMINE 50 mg Capsule PO (05:07)
[2021-01-29] MEDS: sodium chloride 0.9% 1,000 ML 50 ML IV (05:08)
--- NOTE | 2021-01-29 05:40 | PC.NURSE ---
laboratory chemist RN took patient to radiographer cardiac catheterization at this time via w/c. escorted to waiting room.
--- NOTE | 2021-01-29 05:45 | XACV_ITS ---
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 * No disease noted in the Left Main, Left Anterior Descending, Right, or Circumflex coronary arteries. * Coronary angiography shows right dominance. Conclusions 1. No disease noted in the Left Main, Left Anterior Descending, Right, or Circumflex coronary arteries. 2. Normal left ventricular systolic function. Ejection fraction of 55%. Recommendations * Aggressive risk factor modification. * Outpatient cardiology follow up in 4 weeks. Diagnostic RX Recommendation: medical therapy and/or counseling Anticoagulation: Heparin LV EDP: 12 mmHg Ventriculography Ejection Fraction: 55.0 % Pressures Phase:Rest AO : 124 / 19 ( 40 ) @ 5:09:00 AM LV : 117 / 2 / 14 @ 5:08:00 AM 115 / 0 / 12 @ 5:08:00 AM 211 / 10 / 131 @ 5:09:00 AM 121 / 4 / 16 @ 5:09:00 AM Clinical Evaluation EBL: 5mL-10mL Procedural Details Procedure Consent Obtained. Admit Source: In Patient. Pre-Procedure Time Out. Identified patient by full name and date of as verbalized by the patient/guarantor. Does the consent match the physician's order: Yes. Accurate & Complete Informed Consent: Yes. Inpatient/Outpatient History & Physical on Chart: Yes. If H&P is completed, is and addenduem needed: Yes; If yes, is the addendum complete: N/A. Visualize and Verify Site with Patient/Guarantor: N/A. Relevant Radiology Images available: N/A. Pre-op teaching completed and patient verbalized understanding. The risks, benefits, and alternatives of sedation and/or procedure were discussed by physician. The patient agrees to continue. Procedure started. Correct patient, site and procedure confirmed by cath team. PERRLA. Strong, equal hand marketing planner bilaterally. Lungs clear x 5 lobes. IV Site on Arrival: 20 gauge in the left anticubital. IV Fluids: 0.9% NaCl at KVO. 50 mL infused prior to veterinarian laboratory animal care. Pre Procedural Pulses: right dorsalis pedis was 3+. Pre Procedural Pulses: left dorsalis pedis was 1+. Pre Procedural Pulses: bilateral posterior tibial was 2+. Pre Procedural Pulses: bilateral radial was 3+. Oxygen started at 2liters/min via nasal canula. bilateral groins was prepped with chloroprep then draped in the usual sterile fashion. right groin was prepped with chloroprep then draped in the usual sterile fashion. Physician notified. Baseline sample Acquired. HR: 61 BPM. Physician arrived. Physician scrubbed in. Immediate Pre-Procedure Time Out. Correct Patient: Yes; Correct Procedure: Yes; Correct Site: Yes; Correct Patient Position: Yes; Correct Supplies: Yes; Dried Flammable Prep: Yes; Blood Products Available: NA;. Lidocaine 1% infiltrated to the right radial. Equipment: 5F - Femoral. Arterial access obtained. A 5 nepalese TIG catheter in over wire. Catheter inserted over the standard wire. Multiple views taken of left coronary artery. Catheter redirected to the RCA. Multiple views taken of right coronary artery. Catheter out. A 5 nepalese Angled Pig catheter in over wire. LV gram performed in REID @ 10 mL/second for a total of 30 mL. EDP Sample taken: LV 117/2,14; HR: 80 BPM; SpO2: 94%. EDP Sample taken: LV 211/10,131; HR: 57 BPM; SpO2: 94%. Pullback taken: LV Off; AO Off; Mean: , Peak to Peak: , SEP: ; HR: 68 BPM; SpO2: 94%. LV EDP: 12. Catheter out. TR band placed. Hemostasis obtained. Post Procedure: Pulses reassessed and unchanged. PERRLA. Strong, equal hand marketing planner bilaterally. No VTE prophylaxis required. [facility] Clinical Fraility Score: 3: Managing Well. Skip Hoist Operator Indications: New Onset Angina. Chest Pain Symptom Assessment: Typical Angina Symptoms. Cardiovascular Instability: No. Post-op diagnosis: nonobstructive CAD. Complications: none. Estimated blood loss: 5mL-10mL. Contrast type used: Omnipaque 300 mgI/mL, 500 mL bottle. Medication's Wasted: Lidocaine 1% = 18 mL. Medication's Wasted: Nitro = 49.8 mg. Medication's Wasted: Heparin = 1000 units. Total IV fluids: 140 mL. Procedure completed. Patient transferred by wheelchair to ICU. A TR Band was successful obtaining hemostatsis at the Right Radial artery insertion site. Vital chart was stopped. Access Site Site: Right Radial artery Sheath Size: 6 Fr Hemostasis Method: TR Band Hemostasis Success: Successful Procedure Medications Start: 5:54 AM Stop: 5:54 AM Medication: Versed Amount: 1 mg Route: I.V. Start: 5:54 AM Stop: 5:54 AM Medication: Fentanyl Amount: 50 mcg Route: I.V. Start: 6:01 AM Stop: 6:01 AM Medication: Nitrogylcerin Amount: 200 mcg Route: I.A. Start: 6:02 AM Stop: 6:02 AM Medication: Heparin Amount: 5000 units Route: I.V. Start: 6:04 AM Stop: 6:04 AM Medication: 0.9% Saline Amount: 250 ml Route: I.V. bolus Start: 6:04 AM Stop: 6:04 AM Medication: Versed Amount: 1 mg Route: I.V. Start: 6:04 AM Stop: 6:04 AM Medication: Fentanyl Amount: 50 mcg Route: I.V. I, the attending physician, have reviewed and verified all procedure medications. Yes, all medications given per verbal order History/Risk Factors Hypertension: Yes Dyslipidemia: Yes Tobacco Use: Never Report Signatures Finalized by Ladarius Willson MD on 02/06/2021 02:34 PM
--- NOTE | 2021-01-29 05:50 | P.HPUD_ITS ---
Surgery/Procedure H&P Update DATE OF PROCEDURE: January 29, 2021 DATE H&P PERFORMED: 01/28/21 H&P UPDATE INFORMATION: I have reviewed H&P completed within last 30 days, I have examined patient prior to procedure and No changes to prior documentation PREOP DIAGNOSIS: Chest pain/abnormal stress test PRIMARY INDICATION FOR PROCEDURE: Chest pain/abnormal stress test PLANNED PROCEDURE: Operation Date: 01/29/21 06:00 Proposed Procedures p Cardiac Catheterization(Left) - Ladarius Willson M.D Possible percutaneous coronary intervention PATIENT REASSESSED PRIOR TO SEDATION, WITH NO CHANGE NOTED: Yes PHYSICAL EXAM: alert, oriented x 3, clear to auscultation bilaterally and regular rate & rhythm AIRWAY EVAL/ANESTHESIA PLAN: ASA III, Monitored Anesthesia, Local Anesthesia, Risks, benefits & alternatives of sedation and/or procedure discussed and P atient agrees to continue as planned
--- NOTE | 2021-01-29 06:27 | P.PN_ITS ---
Subjective Subjective: Interval history: Patient is overall doing well. Denies any symptoms of chest pain, shortness of breath or palpitations. He underwent coronary angiogram this morning that did not reveal significant coronary artery disease. He had mid LAD bridge. He has converted back to normal sinus rhythm now. Vitals/I&O/Wt Last Vital Signs Temp 97.8 F 01/29/21 04:00 Pulse 60 01/29/21 04:00 Resp 16 01/29/21 04:00 BP 109/63 01/29/21 04:00 Pulse Ox 92 01/29/21 04:00 01/28/21 01/28/21 01/29/21 14:59 22:59 06:59 Intake Total 720 / 720 480 / 1200 Output Total 2150 / 2150 600 / 2750 Balance 720 / 720 -1670 / -950 -600 / -1550 Weight last 48 hrs Weight 260 lb Physical Exam Narrative: EXAM NARRATIVE: GENERAL: Patient is alert, awake and oriented x3. [] NECK: No jugular vein distension. [] HEENT: No cyanosis. No icterus. No pallor. [] HEART: Regular S1 and S2. No murmur, rub or gallop. [] LUNGS: Clear to auscultate bilaterally. [] ABDOMEN: Soft, nontender and nondistended. Positive bowel sounds. No guarding, rebound or tenderness. [] CENTRAL NERVOUS SYSTEM: Grossly nonfocal. [] EXTREMITIES: Lower extremities with 1+ edema bilaterally. Pulses palpable in the lower extremities, both dorsalis pedis and posterior tibial. [] Data : 01/28/21 04:36 01/28/21 04:36 A&P Assessment and plan (1) Chest pain: Status: Acute (2) Afib: Status: Acute (3) Abnormal stress test: Status: Acute (4) HTN (hypertension), benign: Status: Acute (5) Diabetes mellitus: Status: Acute Patient has multiple coronary artery disease risk factors including hypertension, hyperlipidemia, diabetes and peripheral artery disease and has presented with chest pain. He had an abnormal stress test. He underwent coronary angiogram today which revealed a mid LAD bridge however no significant coronary artery disease was found. Echocardiogram performed. It shows normal LV systolic function with no significant valvular heart disease. Patient has atrial fibrillation. We will recommend initiation of anticoagulation. Can start on Xarelto. Thank you for involving us with the care of this patient. Patient is ready to be discharged from cardiology standpoint. Please call with questions. Attestations Medical Necessity Statement*: Care expected to cross 2 midnights. Coding Level of Care Code Acute Menagerie Superintendent for Amy Salomon Diagnoses Chest pain R07.9 Afib I48.91 Abnormal stress test R94.39 HTN (hypertension), benign I10 Diabetes mellitus E11.9
--- NOTE | 2021-01-29 06:33 | PC.NURSE ---
Arrived back from laborer salvage via w/c. Pt drowsy and ambulated self to bed. TR band to right radial. supervisor laboratory reports contains 15ml of air. No hematoma development, site asymptomatic. Pt placed on air sampling and monitoring. Education provided on arm restrictions and signs and symptoms to notify nurse.
--- NOTE | 2021-01-29 08:30 | PC.NURSE ---
total of 15cc removed from TR Band. Cath site Dry and intact. Dressing in place will monitor
--- NOTE | 2021-01-29 09:05 | PC.CHAP ---
Pastoral Care Encounter/Spiritual Assessment Type of Contact [] Declined or rn visit [] Patient/Family/Request visit [] Outpatient visit [] Follow-up visit [] Physician referral [] Code/Alert [x] Routine visit [] Staff referral [] Actively dying [] Patient sleeping [x] Family support [] [] Out of room [] Palliative care [] [] Receiving care in room [] Pre-surgical visit [] Trauma [] Long length of stay [x] ICU visit [] Other: Relational/Emotional Strength [] Patient feels connected with others/family/visitors/staff [] Distress [] Loneliness/isolation [] Abandonment Spirituality of Patient [x] Person of Ambar [] Attends Mormon of their Ambar [] Believes in Prayer [] Reads Bible or Samaritan materials [] There are Spiritual issues to be addressed Tester Wafer Substrate Interventions [x] Prayer [x] Active listening [x] Non-anxious presence [x] Spiritual/emotional support [] Crisis/trauma care [] Spiritual counseling [] Bereavement support [] Provided bereavement packet [] Provided Bible/devotional materials [] Provided toy/stuffed animal, coloring book to patient or family member [] Provided Communion [] Anointing/[place] [] Salvation [x] Completed spiritual assessment [] Other: Impact on Illness or Injury [] Angry [] Fearful [] Anxious [] Often cries [] Exhaustion [] Unable to work [] Unable to attend latter day [] Unable to walk/stand [] Unable to read [] Unable to drive [] Unable to eat/drink [] Unable to sleep [] Unable to be with family [] Patient intubated [] Other: Summary feeling stronger.. having breakfast Time spent with patient 10 min
[2021-01-29] MEDS: sodium chloride 0.9% 1,000 ML 100 ML IV (10:37)
[2021-01-29 11:50] LABS: Glucose Point of Care 241 mg/dL (70-110)
--- NOTE | 2021-01-29 18:47 | P.DS_ITS ---
Discharge Providers Date of Admission: 01/27/21 21:59 Date of Discharge: January 29, 2021 Attending Provider at Admission: Rach Ndiaye MD Attending Provider at Discharge: Rach Ndiaye MD Primary Care Provider: Johnnie Grimaldo Diagnoses at Discharge Discharge Diagnosis (1) Chest pain: Status: Acute (2) Afib: Status: Acute (3) Abnormal stress test: Status: Acute (4) HTN (hypertension), benign: Status: Acute (5) Diabetes mellitus: Status: Acute Reason for Visit Reason for Visit: SENT BY PCP/ABD EKG, CP, L ARM PAIN Hospital Course Hospital Course Regis Fuentes is a 65 year old male with PMH of diabetes, peripheral artery disease, hypertension has been having on and off chest discomfort. However, one episode got him concerned when he had pressure feeling in the chest with radiation to left arm. Reports dyspnea. No orthopnea or PND. EKG showed A fib, rate controlled. This is new onset for him. Troponin series without significant delta. Patient had a stress test that was abnormal in the LCx/RCA territory. He underwent coronary angiogram this morning that did not reveal significant co ronary artery disease. He had mid LAD bridge. He has converted back to normal sinus rhythm now. Echocardiogram performed. It shows normal LV systolic function with no significant valvular heart disease. Patient has atrial fibrillation. cardiology recommended initiation of anticoagulation, started on Xarelto 20mg po daily. 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: no focal neuro deficits Discharge Data Data Completed and Pending: Completed Studies During Hospitalization Category Date Time Status Sestamibi Stress Test Request Routi ne Exams 01/27/21 19:24 Completed XR chest 1V braulio ble [id number] Stat Exams 01/27/21 11:12 Completed NM bret perf SPECT r/s* [id number] Routin e Nuc Med 01/28/21 19:25 [place] [id number] Routin e Ultrasound 01/28/21 19:24 Completed Pending at discharge Category Date Time Status FIELD TECHNICIAN request for service Urgent Exams 01/29/21 05:45 Taken CV echo complete* [id number] Routine Ultrasound 01/28/21 18:24 Taken Labs from last 24 hours 01/29/21 01/28/21 11:49 20:18 POC Glucose 241 H 233 H Vitals: Last Vital Signs Temp 98.2 F 01/29/21 12:55 Pulse 58 L 01/29/21 12:55 Resp 18 01/29/21 12:55 BP 122/64 01/29/21 12:55 Pulse Ox 96 01/29/21 12:55 Discharge Plan Discharge Patient Disposition: Home Condition: Stable Prescriptions: New Xarelto 20 mg tablet 20 mg PO DAILY 30 Days Qty: 30 RF: 0 Continued lisinopril 5 mg tablet 5 mg PO QPM RF: 0 simvastatin 20 mg tablet 20 mg PO BEDTIME RF: 0 metformin 1,000 mg tablet 1,000 mg PO BID RF: 0 metoprolol tartrate 25 mg tablet 25 mg PO BID RF: 0 furosemide 20 mg tablet 20 mg PO QAM RF: 0 clopidogrel 75 mg tablet 75 mg PO QPM RF: 0 glipizide 10 mg tablet 10 mg PO BID RF: 0 meclizine 25 mg tablet 25 mg PO PRN PRN (Reason: dizziness) RF: 0 fluticasone propionate [Flonase Allergy Relief] 50 mcg/actuation spray,suspension 1 spray intranasal BID PRN (Reason: allergy symptoms) RF: 0 multivitamin Tablet 1 tab PO DAILY RF: 0 ropinirole 3 mg tablet 5 mg PO BEDTIME RF: 0 hydrocodone-acetaminophen 7.5-325 mg Tablet 1 tab PO Q6H PRN (Reason: Pain) RF: 0 EpiPen 0.3 mg/0.3 mL Auto-Injector 0.3 mg IM PRN RF: 0 Januvia 50 mg tablet 50 mg PO QAM RF: 0 Discharge Orders: Discharge Order (Routine); Ordered 01/29/21 Ordered By: Rach Ndiaye Referrals: Johnnie Grimaldo [Primary Care Provider] - 4-7 days (FOLLOW UP WITH APPOINTMENT HAS BEEN SCHEDULED FOR THE FOLLOWING DATE OF FEBRUARY 04, 2021 AT 2:40 PM) Ladarius Willson M.D [Physician] - 7-10 days (YOU ARE SCHEDULED FOR FOLLOW UP APPOINTMENT AT [facility] FOR POST ANGIOGRAM .YOU WILL FOLLOW WITH PERSONAL SECRETARY NURSE ORQUIDEA ROSAS FOR DATE OF FEBRUARY 05, 2021 AT 1:15 PM WILL NEED LAB DRAW AT TIME OF APPOINTMENT ) Discharge Diet: Cardiac Discharge Activity: Resume usual activity Patient Instructions: Rivaroxaban (By mouth), Heart Healthy Diet, Left Heart Catheterization (DC), Right Heart Catheterization (DC), Opioid Safety, Post Angiogram Home Care Instructions Discharge Attestations Time Spent in Discharge Care*: greater than 30 min Quality Metrics Clinical Quality Measures During this hospital stay, did patient experience: None Coding Level of Care Code Acute Chg FW DC note Diagnoses Chest pain R07.9 Afib I48.91 Abnormal stress test R94.39 HTN (hypertension), benign I10 Diabetes mellitus E11.9
== END 2021-01-29 13:08 | disposition home or self-care (01) ==
LOC: ER 18:25 → ICU 01-28 07:59
PROVIDERS: Internal Medicine Cardiovascular Disease; Admitting Provider Student in an Organized Health Care Education/Training Program; Emergency Provider Family Medicine; PCP Physician Assistant Medical; Visit Provider Student in an Organized Health Care Education/Training Program
DX: I48.91 Unspecified atrial fibrillation (principal); R07.89 Other chest pain; M79.89 Other specified soft tissue disorders; R94.39 Abnormal result of other cardiovascular function study; I10 Essential (primary) hypertension; E11.9 Type 2 diabetes mellitus without complications; Z79.84 Long term (current) use of oral hypoglycemic drugs
CPT/HCPCS: 36415; 36416; 71045; 78452; 80053; 82962; 83690; 83880; 84484; 85025; 85378; 93005; 93017; 93306; 93452; 93970; 96361; 96372; 96374; 99285; A9500; C1769; C1887; C1894; G0378; J1644; J1815; J1940; J2250; J2785; J3010; J3490; J7030; Q0163; Q9967

== ENCOUNTER → 2021-02-05 14:43 | Outpatient (BNVA) | payer MEDICARE, SELFPAY | PROVIDERS: PCP Physician Assistant Medical; Visit Provider Nurse Practitioner Family | DX: I73.9 Peripheral vascular disease, unspecified (principal); I48.91 Unspecified atrial fibrillation; Q24.5 Malformation of coronary vessels | CPT/HCPCS: 80048 ==

== ENCOUNTER 2021-04-29 13:27 | Outpatient (CLI) | payer MEDICARE, SELFPAY ==
--- NOTE | 2021-04-29 | USCV_ITS ---
Regis Fuentes Age: 65 Gender: M : 1955 Exam Date: 04/29/2021 13:54 Ordering Phys: Ladarius Willson M.D ([email or web address]) Technologist: Art Meyers Wardsperson [place] [facility] [place]ication: PVD CLAUDICATION RIGHT LEFT Brachial 149.00 mmHg Brachial 139.00 mmHg Pressure (mmHg) Waveform Pressure (mmHg) Waveform 160.00 FILM EXAMINER 106.00 169.00 DPA 112.00 1.13 Ankle/Brachial Index 0.75 146.00 Pre-Exercise Toe Pressure 92.00 0.98 Pre-Exercise Toe/Brachial Index 0.62 FINDINGS Normal resting SIMONE and TBI on the right side Abnormal resting SIMONE and TBI on the left side SIMONE of 0.75 with a TBI of 0.62 on the left side; SIMONE of 1.13 on the right side with a TBI of 0.98 CONCLUSIONS 1. Slightly abnormal resting SIMONE and TBI on the left side, suggestive of mild peripheral arterial disease 2. Normal resting SIMONE and TBI on the right side with no evidence of any significant arterial obstruction Dr Percy Hurt MD [facility] (Electronically Signed) Final Date: 29 April 2021 19:20 S
--- NOTE | 2021-04-29 13:30 | USCV_ITS ---
Regis Fuentes Age: 65 Gender: M : 1955 Exam Date: 04/29/2021 13:56 Ordering Phys: Ladarius Willson M.D ([email or web address]) Technologist: LAYO Exam Location: [facility] [place] Indication: PVD CLAUDICATION Risk Factors: Previous Vascular Surgery: RIGHT LEFT Waveform Velocity (cm/s) Velocity (cm/s) Waveform Triphasic Iliac Prox Triphasic 105.1 100.8 Triphasic 98.2 Iliac Mid 106.0 Triphasic Triphasic 83.5 Iliac Distal 99.1 Triphasic Triphasic 90.4 SPRAYER AUTOMATIC SPRAY MACHINE 99.1 Triphasic Triphasic 110.4 SFA Prox 86.3 Triphasic Triphasic 87.2 SFA Mid 56.5 Triphasic Triphasic 80.3 SFA Dist 51.3 Triphasic Triphasic 111.4 POP 117.0 Monophasic Triphasic 63.8 SEX THERAPIST 31.8 Monophasic Triphasic DPA 40.4 Monophasic FINDINGS Normal arterial Doppler waveforms on the right side. Normal Doppler flow velocities. PVR was not obtained. Normal Doppler waveforms and velocities in the left iliac and femoral arteries. Popliteal and infrapopliteal vessels were found to have monophasic waveforms SIMONE was not obtained. . CONCLUSIONS 1. Normal Doppler waveforms and Doppler velocities, suggestive of no significant arterial obstruction in the right lower extremity. 2. Abnormal Doppler waveforms in the popliteal and infrapopliteal vessels on the left side, may suggest hemodynamically significant stenosis ABIs are not obtained Dr Percy Hurt MD [facility] (Electronically Signed) Final Date: 29 April 2021 19:26 S
== END 2021-04-29 13:28 | disposition home or self-care (01) ==
PROVIDERS: PCP Physician Assistant Medical; Visit Provider Internal Medicine
DX: I73.9 Peripheral vascular disease, unspecified (principal)
CPT/HCPCS: 93922; 93925

== ENCOUNTER → 2021-07-27 08:23 | Outpatient (BNVA) | payer MEDICARE, SELFPAY | PROVIDERS: PCP Nurse Practitioner Family; Visit Provider Internal Medicine | DX: Z01.818 Encounter for other preprocedural examination (principal); E11.9 Type 2 diabetes mellitus without complications; I10 Essential (primary) hypertension; I73.9 Peripheral vascular disease, unspecified; R07.9 Chest pain, unspecified; R94.39 Abnormal result of other cardiovascular function study; I48.91 Unspecified atrial fibrillation | CPT/HCPCS: 80048; 85025; 85610; 87635 ==

== ENCOUNTER 2021-07-31 05:46 | Outpatient (CLI) | payer MEDICARE, SELFPAY ==
[2021-07-30 16:00] VITALS: BP 158/80; PULSE 62; RESP 18; TEMP 36.4
--- NOTE | 2021-07-31 06:00 | XACV_ITS ---
Wt: 144 kg BSA: 2.69 m2 Any Known Allergies: Other Gender: Male : 1955 Exam Type: Invasive Peripheral Vascular Procedure(s): Procedure Description: Peripheral Cath Diagnostic Procedure Procedure Description: Lower extremities' angiography Exam Priority: Routine Abdominal Diagnostic Findings Mildly aneurysmal aorta. Lower Extremity Diagnostic Findings Right lower extremity not injected. Left common iliac artery: Patent Left external iliac artery: Patent Left internal iliac artery: Patent Left common femoral artery: Patent Left profunda femoral artery: Patent Left SFA: Distally occluded. Also has occluded distal SFA to popliteal stent. Left popliteal artery: Reconstitutes distally via collaterals TP segment: Patent Anterior tibial artery: Occluded Posterior tibial artery: Patent Peroneal artery patent. Lower Extremity Interventional Findings Procedure detail: Short 6 Luxembourgish sheath was switched to long sheath and was placed in left external iliac artery. Using a seeker support catheter and Glidewire we attempted to cross the totally occluded segment and SFA however the attempt was unsuccessful. Patient left the Ldr Rn in a stable condition. Conclusions Totally occluded distal SFA artery. Occluded stent in distal SFA and proximal popliteal artery. Unsuccessful attempt at revascularization. Recommendations We will refer to Dr. Harrington for evaluation regarding possible femoropopliteal bypass. If not good candidate, will consider reattempt of revascularization percutaneously through popliteal artery access versus posterior tibial access. Optimize medical therapy. Access Site Site: Right Femoral artery Sheath Size: 6 Fr Hemost... Success: Unsuccessful Procedure Details Findings Procedure Consent Obtained. Pre-Procedure Time Out. Does the consent match the physician's order: Yes. Accurate & Complete Informed Consent: Yes. Inpatient/Outpatient History & Physical on Chart: Yes. If H&P is completed, is and addenduem needed: N/A; If yes, is the addendum complete: N/A. Visualize and Verify Site with Patient/Guarantor: N/A. Relevant Radiology Images available: Yes. Pre-op teaching completed and patient verbalized understanding. The risks, benefits, and alternatives of sedation and/or procedure were discussed by physician. The patient agrees to continue. Procedure started. Correct patient, site and procedure confirmed by cath team. PERRLA. Strong, equal hand casting machine control board operator bilaterally. Lungs clear x 5 lobes. IV Site on Arrival: 20 gauge in the left anticubital. IV Fluids: 0.9% NaCl at KVO. 0 mL infused prior to petroleum refinery laborer. Pre Procedural Pulses: bilateral dorsalis pedis was Doppled. Pre Procedural Pulses: bilateral posterior tibial was Doppled. Pre Procedural Pulses: bilateral radial was 3+. Oxygen started at 2liters/min via nasal canula. bilateral groins was prepped with chloroprep then draped in the usual sterile fashion. Physician notified. Equipment: 6F - Femoral. Cardiac Cath Pack. ACIST Manifold Kit Model BT 2000. Heparinized Saline (2 units/mL), 1000 mL bag. Kit, Micropuncture. Baseline sample Acquired. HR: 55 BPM. Physician arrived. Physician scrubbed in. Immediate Pre-Procedure Time Out. Correct Patient: Yes; Correct Procedure: Yes; Correct Site: Yes; Correct Patient Position: Yes; Correct Supplies: Yes; Dried Flammable Prep: Yes; Blood Products Available: No;. Lidocaine 1% infiltrated to the right groin. Arterial access obtained with micropuncture set. A 5FrFr UF catheter in over wire. Abdominal aortogram performed in AP @ 10 mL/sec for a total of 30 mL. glidewire inserted. wire removed. Left leg run off 10ml/sec for a total of 30ml. glidewire inserted. 6Fr short sheath exchanged for a 6fr long sheath. Catheter out. seeker inserted. wire out. hand injection. glidewire inserted. wire removed. hand injection. hand injection. glidewire inserted. seeker removed. 6 fr long sheath exchanged for a 6fr short sheath. wire removed. Sheath(s) sutured into position with 2-0 silk and sterile 4x4's and Op-site applied over the site. No oozing or signs and symptoms of hematoma noted. Arterial sheath flushed and connected to tranducer and pressure bag with heparinized saline. Post Procedure: Pulses reassessed and unchanged. PERRLA. Strong, equal hand casting machine control board operator bilaterally. No VTE prophylaxis required. Medication's Wasted: Heparin = 1000 units. Total IV fluids: 75 mL. Fluoro: 11:00. Contrast type used: Visipaque 320 mgI/mL, 500 mL bottle. [id number]. Post-op diagnosis: PAD. Complications: none. Estimated blood loss: 5mL-10mL. Responsiveness - Normal response to verbal stimuli; alert and oriented, PERRLA. Airway - Unaffected, no intervention required; spontaneous ventilation. Circulation: W/N/L, pulses unchanged. Nausea/Vomiting: No. Procedure completed. Patient transferred by bed to 1st floor. Vital chart was stopped. Procedure Medications Start: 7:45 AM Stop: 7:45 AM Medication: Versed Amount: 1 mg Route: I.V. Start: 7:45 AM Stop: 7:45 AM Medication: Fentanyl Amount: 50 mcg Route: I.V. Start: 7:52 AM Stop: 7:52 AM Medication: Versed Amount: 1 mg Route: I.V. Start: 8:11 AM Stop: 8:11 AM Medication: Fentanyl Amount: 50 mcg Route: I.V. Start: 8:27 AM Stop: 8:27 AM Medication: Hydralazine Amount: 10 mg Route: I.V. I, the attending physician, have reviewed and verified all procedure medications. Yes, all medications given per verbal order History/Risk Factors Hypertension: Yes Dyslipidemia: No Peripheral Arterial Disease (PAD): Yes Obesity: No Renal Disease: No Tobacco Use: Former Prior Interventions PCI: No CABG: No Valve Surgery: No Report Signatures Finalized by Ladarius Willson MD on 08/18/2021 06:42 AM
[2021-07-31] MEDS: diphenhydrAMINE 50 mg Capsule PO (06:36)
[2021-07-31 06:38] VITALS: BMI 49.6
[2021-07-31 06:43] VITALS: BP 158/80; PULSE 62; RESP 18; TEMP 36.4; O2SAT 98
[2021-07-31 06:44] VITALS: BP 158/80; PULSE 62; RESP 18; TEMP 36.4; O2SAT 98
--- NOTE | 2021-07-31 07:26 | P.HPUD_ITS ---
Surgery/Procedure H&P Update DATE OF PROCEDURE: July 31, 2021 DATE H&P PERFORMED: 07/07/21 H&P UPDATE INFORMATION: I have reviewed H&P completed within last 30 days, I have examined patient prior to procedure and No changes to prior documentation PREOP DIAGNOSIS: Severe lifestyle limiting claudication PRIMARY INDICATION FOR PROCEDURE: Severe lifestyle limiting claudication PLANNED PROCEDURE: Operation Date: 07/31/21 07:00 Proposed Procedures p Peripheral Diagnostic(Bilateral) - Ladarius Willson M.D Possible intervention PATIENT REASSESSED PRIOR TO SEDATION, WITH NO CHANGE NOTED: Yes PHYSICAL EXAM: alert, oriented x 3, clear to auscultation bilaterally and regular rate & rhythm AIRWAY EVAL/ANESTHESIA PLAN: ASA III, Monitored Anesthesia, Local Anesthesia, Risks, benefits & alternatives of sedation and/or procedure discussed and Jose goodwin agrees to continue as planned
--- NOTE | 2021-07-31 10:43 | PC.NURSE ---
return from cardiac oil field laborer at 0850.report received.pt is alert and awake.denies pain at present.sr on monitor.right femoral sheath with drsg dry and intact.no hematoma noted .right leg is warm to touch and with brisk capillary refill.right femoral sheath pulled at 0900.manual pressure applied x 20 min.vss throughout procedure.no hematoma formation noted.site dressed with 2x2 gauze and secured with biocclusive drsg.instructed in activity restrictions s/p femoral artery procedure..and instructed to notify staff for any bleedinf,pain,numbness,..or for any concerns at all. pt verb understanding of instructions
[2021-07-31] MEDS: ropinirole 2 mg Tablet 4 MG PO (11:28)
--- NOTE | 2021-07-31 19:52 | PC.NURSE ---
pt completed bedrest at 1500.dr bates came and spoke with pt.vss.no hematoma formation noted.post cath vs were erased on [employer]ful Tables.discharge instructions given and explained.pt discharged at 1600 via w/c to exit.spouse to drive pt home.
== END 2021-07-31 16:00 | disposition home or self-care (01) ==
LOC: CCL 05:52 → CSU 08:49
PROVIDERS: PCP Nurse Practitioner Family; Visit Provider Internal Medicine
DX: I70.202 Unspecified atherosclerosis of native arteries of extremities, left leg (principal); I70.92 Chronic total occlusion of artery of the extremities; I10 Essential (primary) hypertension; Z87.891 Personal history of nicotine dependence; E11.9 Type 2 diabetes mellitus without complications; Z79.84 Long term (current) use of oral hypoglycemic drugs; I48.91 Unspecified atrial fibrillation
CPT/HCPCS: 75625; 75710; C1769; C1887; C1894; J0360; J1644; J2250; J3010; J7030; Q0163; Q9967

== ENCOUNTER → 2021-08-04 13:18 | Outpatient (BNVA) | payer MEDICARE, SELFPAY | PROVIDERS: PCP Nurse Practitioner Family; Visit Provider Internal Medicine | DX: E11.9 Type 2 diabetes mellitus without complications (principal); I73.9 Peripheral vascular disease, unspecified; Z79.84 Long term (current) use of oral hypoglycemic drugs | CPT/HCPCS: 99204 ==

== ENCOUNTER → 2021-08-18 13:29 | Outpatient (BNVA) | payer MEDICARE, OTHER, SELFPAY | PROVIDERS: PCP Nurse Practitioner Family; Visit Provider Internal Medicine | DX: E11.9 Type 2 diabetes mellitus without complications (principal); E78.5 Hyperlipidemia, unspecified; I73.9 Peripheral vascular disease, unspecified; Z79.84 Long term (current) use of oral hypoglycemic drugs | CPT/HCPCS: 99214 ==

== ENCOUNTER → 2021-09-04 10:10 | Outpatient (BNVA) | payer MEDICARE, SELFPAY | PROVIDERS: PCP Nurse Practitioner Family; Visit Provider Internal Medicine | DX: I48.91 Unspecified atrial fibrillation (principal); Z01.818 Encounter for other preprocedural examination; E11.9 Type 2 diabetes mellitus without complications | CPT/HCPCS: 80048; 85025; 87635 ==

== ENCOUNTER 2021-09-08 07:15 | Outpatient (CLI) | payer MEDICARE, SELFPAY ==
[2021-09-08] VITALS (38 sets, daily range): BP systolic 103–141; BP diastolic 63–84; PULSE 58–73; RESP 7–24; TEMP 36.4; O2SAT 94–100; BMI 49.6; BMI 47.7
--- NOTE | 2021-09-08 07:30 | XACV_ITS ---
Ht: 170 cm Wt: 144 kg BSA: 2.69 m2 Any Known Allergies: Other Gender: Male : 1955 Exam Type: Invasive Peripheral Vascular Procedure(s): Procedure Description: Peripheral Cath Diagnostic Procedure Procedure Description: Lower extremities' angiography Procedure Description: Peripheral vascular Intervention Procedure Description: PV Balloon Procedure Description: PV Stent Exam Priority: Routine Lower Extremity Diagnostic Findings This was a scheduled interventional procedure. For complete peripheral angiogram report, please refer to report from 07/31/2021. Totally occluded left distal SFA to popliteal artery. Popliteal artery reconstitutes via collaterals from the left profunda and SFA. Lower Extremity Interventional Findings Procedure detail: We initially attempted to obtain access in left posterior tibial artery. However it was unsuccessful. We then obtained access with 4 [place] sheath in left popliteal artery. However wire could not be advanced through the totally occluded segment and proximal popliteal/distal SFA. At this time we switched access to right common femoral artery. We went up and over and switched our short 6 [place] sheath to long sheath. Glidewire was used to cross into the popliteal artery and was parked in posterior tibial artery. At this time we performed balloon angioplasty using 5.0 x 100 mm balloon. This was followed by balloon angioplasty with 6.0 x 40 mm balloon. We then placed 6.0 x 100 mm stent in the popliteal and distal SFA. Another 6.0 x 60 mm self-expanding stent was placed proximal to the initial stent. This was postdilated with a 7.0 x 100 mm balloon. At this time final angiogram was performed that showed excellent flow and no residual stenosis. Long sheath was switched to short sheath for removal later. 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 INDICATION: Severe lifestyle limiting claudication. Conclusions Successful revascularization of distal SFA/popliteal artery with self-expanding stents x2. Recommendations Transfer to [facility]. Aspirin and Plavix for 3 to 6 months. Outpatient cardiology follow-up in 4 weeks. Hemodynamic Data Phase:Rest AO : 153.0 / 74.0 ( 101.0 ) @ 9:28:00 AM 165.0 / 73.0 ( 106.0 ) @ 9:58:00 AM 132.0 / 70.0 ( 92.0 ) @ 10:04:00 AM Access Site Site: Right Popliteal Sheath Size: 4 Fr Hemost... Method: Manual Compression Hemost... Success: Successful Site: Right Femoral artery Sheath Size: 6 Fr Hemost... Success: Unsuccessful Procedure Details Findings Procedure Consent Obtained. Pre-Procedure Time Out. Identified patient by full name and date of as verbalized by the patient/guarantor. Does the consent match the physician's order: Yes. Accurate & Complete Informed Consent: Yes. Inpatient/Outpatient History & Physical on Chart: Yes. If H&P is completed, is and addenduem needed: No. Visualize and Verify Site with Patient/Guarantor: N/A. Relevant Radiology Images available: Yes. The risks, benefits, and alternatives of sedation and/or procedure were discussed by physician. The patient agrees to continue. Procedure started. Correct patient, site and procedure confirmed by cath team. Current diagnosis: PAD, known intervention. PERRLA. Strong, equal hand meat smoker bilaterally. Lungs clear x 5 lobes. IV Site on Arrival: 18 gauge in the left anticubital. IV Fluids: 0.9% NaCl at KVO. 0 mL infused prior to cath lab radiological technologist. Pre Procedural Pulses: right dorsalis pedis was 2+. Pre Procedural Pulses: left dorsalis pedis was Doppled. Pre Procedural Pulses: right posterior tibial was 1+. Pre Procedural Pulses: left posterior tibial was Doppled. Oxygen started at 2liters/min via nasal canula. left pedal was prepped with chloroprep then draped in the usual sterile fashion. Physician notified. Baseline sample Acquired. HR: 66 BPM. Patient's family unavailable. Equipment: 6F - Femoral. Cardiac Cath Pack. ACIST Manifold Kit Model BT 2000. Heparinized Saline (2 units/mL), 1000 mL bag. Kit, Micropuncture. Physician arrived. Physician scrubbed in. Immediate Pre-Procedure Time Out. Correct Patient: Yes; Correct Procedure: Yes; Correct Site: Yes; Correct Patient Position: Yes; Correct Supplies: Yes; Dried Flammable Prep: Yes; Blood Products Available: N/A. Lidocaine 1% infiltrated to the left pedal. Attempting pedal access with the help of US Francia. Doyle Andre RN, RIVERINE ASSAULT CRAFT CREWMAN scrubbing in for Marielos Wallis, RT (R). Vanessa Amaya RN in to circulate for Doyle Andre RN, RIVERINE ASSAULT CRAFT CREWMAN. Pedal access aborted, will flip patient over to his belly and attempt left popliteal access. Lidocaine 1% infiltrated to the left popliteal. Arterial access obtained with micropuncture set. unable to put sheath in d/t close proximity the the existing distal SFA/popliteal stent. Wire and needle out. Manual pressure held x [address] Willson. Family updated by Xuan Walton RN, RIVERINE ASSAULT CRAFT CREWMAN. Arterial access obtained with [employer] Micripuncture Pedal Access Kit. Dr. Ugalde scrubbed in. Glidewire in through the 4 fr pedal system. Glidewire out, standard J wire in. Standard J wire out, Glidewire in. 4fr pedal system out over the glidewire. Sheath upsized to a 6 Fr. Wire and sheath out. Dr. Willson holding manual pressure. Popliteal access aborted, will flip patient over to his bfemoralack and attempt right femoral access. A Manual Compression was successful obtaining hemostatsis at the Right Popliteal insertion site. right groin was prepped with chloroprep then draped in the usual sterile fashion. Lidocaine 1% infiltrated to the right groin. Family updated by Sabine Armendariz RN. Arterial access obtained with micropuncture set. Glidewire in through the sheath. A 5 Fr UF catheter in over the glidewire. Glidewire advanced down the left SFA. UF Catheter removed over the glide wire. Sheath upsized to a 6 Fr. Seeker catheter inserted over the glidewire. Marielos Wallis RT(R) in to scrub out Doyle Andre RN, RIVER[employer] ASSAULT CRAFT CREWMAN. Left superficial femoral selected and arteriogram with runoff performed @ 10 mL/sec for a total of 30 mL. Glidewire out. Hand injection performed through the Seeker. Glidewire in and advanced across the lesion in the left SFA. Seeker then advanced. Seeker catheter removed over the glidewire. Inflation number : 1 A AB ARMADA 35 OTW [id number] was prepped and advanced across the Superficial Femoral, Left , then inflated to 4 LILLIE for 1:32 seconds. Balloon out. Seeker catheter inserted over the glidewire. Doyle Andre RN, RIVERINE ASSAULT CRAFT CREWMAN in to circulate for Vanessa Kaufman RN. Side port of sheath attached to Normal Saline flush at KVO to maintain patency. Seeker catheter removed over the glidewire. Inflation number : 2 A AB ARMADA 35 OTW [id number] was prepped and advanced across the Superficial Femoral, Left , then inflated to 4 LILLIE for 0:43 seconds. Inflation number: 3 The AB ARMADA 35 OTW [id number] was reinflated across the Superficial Femoral, Left, to 5 LILLIE for 0:42 seconds. Inflation number: 4 The AB ARMADA 35 OTW [id number] was reinflated across the Superficial Femoral, Left, to 5 LILLIE for 0:45 seconds. Inflation number: 5 The AB ARMADA 35 OTW [id number] was reinflated across the Superficial Femoral, Left, to 5 LILLIE for 0:45 seconds. Balloon out. Left superficial femoral selected and arteriogram with runoff performed @ 10 mL/sec for a total of 30 mL. AB ABSOLUTE PRO SE STENT [id number] was deployed across Superficial Femoral, Left. Lot #[id number]. Exp. 2023-03-28. Stent deployment system out. AB ABSOLUTE PRO SE STENT [id number] was deployed across Superficial Femoral, Left. Lot #[id number] 1. Exp. 2024-01-27. Stent deployment system out. Inflation number : 6 A AB ARMADA 35 OTW [id number] was prepped and advanced across the Superficial Femoral, Left , then inflated to 4 LILLIE for 0:30 seconds. Inflation number: 7 The AB ARMADA 35 OTW [id number] was reinflated across the Superficial Femoral, Left, to 4 LILLIE for 0:37 seconds. Inflation number: 8 The AB ARMADA 35 OTW [id number] was reinflated across the Superficial Femoral, Left, to 4 LILLIE for 0:45 seconds. Balloon out. Left superficial femoral selected and arteriogram with runoff performed @ 10 mL/sec for a total of 30 mL. Glidewire out. Left superficial femoral selected and arteriogram with runoff performed @ 10 mL/sec for a total of 30 mL. Glidewire in. Sheath upsized to a [address] Willson and Dr. Ugalde scrubbbed out. Sheath(s) sutured into position with 2-0 silk and sterile 4x4's and Op-site applied over the site. No oozing or signs and symptoms of hematoma noted. Arterial sheath flushed and connected to tranducer and pressure bag with heparinized saline. Post Procedure: Pulses reassessed and unchanged. PERRLA. Strong, equal hand meat smoker bilaterally. No VTE prophylaxis required. Medication's Wasted: Nitro = 49.6 mg. Medication's Wasted: Heparin = 3000 units. Total IV fluids: 200 mL. Post-op diagnosis: Ballooning and stenting of the left SFA. Complications: none. Estimated blood loss: 5mL-10mL. Responsiveness - Normal response to verbal stimuli; alert and oriented, PERRLA. Airway - Unaffected, no intervention required; spontaneous ventilation. Airway - Unaffected, no intervention required; spontaneous ventilation. Circulation: W/N/L, pulses unchanged. Nausea/Vomiting: No. Procedure completed. Patient transferred by bed to 1st floor. Vital chart was stopped. Procedure Medications Start: 9:17 AM Stop: 9:17 AM Medication: Versed Amount: 1 mg Route: I.V. Start: 9:17 AM Stop: 9:17 AM Medication: Fentanyl Amount: 50 mcg Route: I.V. Start: 9:30 AM Stop: 9:30 AM Medication: Versed Amount: 1 mg Route: I.V. Start: 10:32 AM Stop: 10:32 AM Medication: Versed Amount: 1 mg Route: I.V. Start: 10:32 AM Stop: 10:32 AM Medication: Fentanyl Amount: 25 mcg Route: I.V. Start: 10:35 AM Stop: 10:35 AM Medication: Versed Amount: 1 mg Route: I.V. Start: 10:35 AM Stop: 10:35 AM Medication: Fentanyl Amount: 25 mcg Route: I.V. Start: 10:48 AM Stop: 10:48 AM Medication: Versed Amount: 1 mg Route: I.V. Start: 11:21 AM Stop: 11:21 AM Medication: Fentanyl Amount: 50 mcg Route: I.V. Start: 11:49 AM Stop: 11:49 AM Medication: Versed Amount: 1 mg Route: I.V. Start: 11:49 AM Stop: 11:49 AM Medication: Fentanyl Amount: 50 mcg Route: I.V. Start: 12:10 PM Stop: 12:10 PM Medication: Heparin Amount: 7000 units Route: I.V. Start: 12:14 PM Stop: 12:14 PM Medication: Versed Amount: 1 mg Route: I.V. Start: 12:23 PM Stop: 12:23 PM Medication: Nitrogylcerin Amount: 400 mcg Route: I.A. Start: 12:34 PM Stop: 12:34 PM Medication: Aspirin Amount: 325 mg Route: P.O. Start: 12:34 PM Stop: 12:34 PM Medication: Plavix Amount: 300 mg Route: P.O. I, the attending physician, have reviewed and verified all procedure medications. Yes, all medications given per verbal order History/Risk Factors Hypertension: Yes Dyslipidemia: Yes Peripheral Arterial Disease (PAD): Yes Obesity: Yes Renal Disease: No Tobacco Use: Former Prior Interventions PCI: No CABG: No Valve Surgery: No Report Signatures Finalized by Ladarius Willson MD on 09/09/2021 09:18 AM
[2021-09-08] MEDS: diphenhydrAMINE 50 mg Capsule PO (08:22)
--- NOTE | 2021-09-08 08:54 | P.HP_ITS ---
Same Day Surgery H&P Indication for Procedure/HPI DATE OF PROCEDURE: September 08, 2021 CHIEF COMPLAINT/INDICATIONFOR SURGICAL PROCEDURE: Severe lifestyle limiting claudication PREOP DIAGNOSIS: Severe lifestyle limiting claudication PLANNED PROCEDRUE: Operation Date: 09/08/21 08:30 Proposed Procedures p Peripheral Diagnostic(Bilateral) - Ladarius Willson M.D Percutaneous peripheral intervention 65 year old male with PMH of diabetes, peripheral artery disease, hypertension with prior history of SFA/popliteal artery stent on the left side has been having lifestyle limiting severe claudication on the left side. We had attempted percutaneous revascularization from contralateral access site however was unsuccessful. He was referred to Dr. Harrington for possible bypass surgery however he recommended to attempt from retrograde approach as risk of graft infection is high given his weight. Plan for revascularization from left PT/popliteal access. ROS CONSTITUTIONAL: No fever chills weight loss or gain or night sweats. [] HEENT: Normocephalic, atraumatic.[] RESPIRATORY: No cough, sputum, hemoptysis or wheezing.[] CARDIOVASCULAR: No shortness of breath, chest pain, PND, orthopnea, lower extremity edema, presyncope or syncope. [] GI: no nausea vomiting diarrhea. [] BUSINESS DEVELOPMENT ANALYST: No numbness, tingling, weakness or loss of function in any part of the body. [] MUSCULOSKELETAL: Has exertional left lower extremity pain. Medications/Allergies* Home Medications Medication Instructions Recorded Confirmed Type fluticasone propionate 50 1 spray INTRANASAL BID PRN 07/14/20 09/08/21 History mcg/actuation nasal spray,suspension furosemide 20 mg tablet 20 mg PO QAM 07/14/20 09/08/21 History glipizide 10 mg tablet 10 mg PO BID 07/14/20 09/08/21 History lisinopril 5 mg tablet 5 mg PO QPM 07/14/20 09/08/21 History meclizine 25 mg tablet 25 mg PO PRN PRN 07/14/20 09/08/21 History metformin 1,000 mg tablet 1,000 mg PO BID 07/14/20 09/08/21 History metoprolol tartrate 25 mg tablet 25 mg PO BID 07/14/20 09/08/21 History simvastatin 20 mg tablet 20 mg PO BEDTIME 07/14/20 09/08/21 History epinephrine [EpiPen] 0.3 mg IM PRN 01/27/21 09/08/21 History hydrocodone-acetaminophen 1 tab PO Q6H PRN 01/27/21 09/08/21 History multivitamin 1 tab PO DAILY 01/27/21 09/08/21 History ropinirole 5 mg PO BEDTIME 01/27/21 09/08/21 History Allergies/Adverse Reactions Allergy/AdvReac Type Severity Reaction Status Date / Time Penicillins Allergy ALGY-Anaphy Verified 08/18/21 14:01 laxis venom-wasp Allergy Unknown Verified 08/18/21 14:01 Current Medications: Generic Name Dose Route Start Last Admin Trade Name Freq PRN Reason Stop Dose Admin Sodium Chloride 1,000 mls @ 50 mls/hr 09/08/21 07:30 09/08/21 08:22 Sodium Chloride 0.9% IV 09/09/21 03:29 Not Given .Q20H ONE Pertinent History/Comorbid Conditions* Medical History (Updated 08/23/21 @ 14:59 by Anderson Holm MD) Afib Diabetes mellitus Dyslipidemia HTN (hypertension), benign Myocardial bridge Surgical History (Updated 07/29/20 @ 11:16 by Gordon Alcantara MD) H/O circumcision H/O colonoscopy (07/29/20) History of rectal surgery Family History (Updated 07/14/20 @ 11:04 by Heather Reagan LPN) Diabetes CAD (coronary artery disease) Cancer Hypertension Denies family history of Anesthesia complication Bleeding disorder Social History Alcohol intake: current Alcohol intake frequency: holidays/special occasions only Household members: spouse Marital status: Current occupational status: disabled History of recent travel: No Pertinent Exam Findings alert, oriented x 3, clear to auscultation bilaterally and regular rate & rhythm Conscious Sedation Assessment PATIENT ASSESSED PRIOR TO SEDATION, WITH NO CHANGE NOTED: Yes AIRWAY EVAL/ANESTHESIA PLAN: ASA III, Monitored Anesthesia, Local Anesthesia, Risks, benefits & alternatives of sedation and/or procedure discussed and Patient agrees to continue as planned Recommendations Surgery/Procedure today (Peripheral angiogram with possible percutaneous intervention) Coding Level of Care Code Acute Food Service Team Member for Amy Salomon
[2021-09-08 15:49] LABS: Partial Thromboplastin Time 35.6 SECONDS (23.9-36.7)
--- NOTE | 2021-09-08 16:03 | PC.NURSE ---
received into room 112-1 from cath raoul via bed at 1300.report received.pt is alert and oriented x 4.sr on monitor.right femoral arterial sheath intact to pressurized system.no hematoma noted.right leg/foot is warm to touch and with brisk capillary refill.palpable right and left pt and dp pulses palpable.instructed in activity restrictions s/p femoral arterial procedure..and instructed to notify staff for any bleeding,numbness,pain..or for any concerns at all.pt verb understanding of instructions
[2021-09-08] MEDS: metoprolol tartrate 25 mg Tablet PO (17:28)
[2021-09-08] MEDS: lisinopril 5 mg Tablet PO (17:28)
--- NOTE | 2021-09-08 17:34 | PC.NURSE ---
right arterial femoral drsg pulled at 1625.manual pressure applied x 20 min.vss through-out procedure.no hematoma formation noted.right and left dp and pt pulses palpable and both legs are warm to touch and with brisk capillary refill.site dressed with 2 x 2 guaze and secured with biocclusive drsg.pt instructed in activity restrictions s/p femoral sheath pull...and instructed to notify staff for any bleeding,pain,numbness,or for any concerns at all.pt verb of understanding
[2021-09-08] MEDS: ropinirole 2 mg Tablet 5 MG PO (20:41)
[2021-09-08] MEDS: atorvastatin 40 mg Tablet 20 MG PO (20:41)
[2021-09-09] VITALS (43 sets, daily range): BP systolic 103–130; BP diastolic 47–72; PULSE 64–76; RESP 14–24; TEMP 36.2; O2SAT 90–96
[2021-09-09 03:11] LABS: Basophils % 0.4 %; Eosinophils # 0.2 10^3/uL (0.0-0.8); Hematocrit 39.9 % (42.0-52.0); Lymphocytes # 1.6 10^3/uL (0.8-4.8); Lymphocytes % 21.6 %; Mean Corpuscular HGB Conc 32.6 g/dL (30.0-36.0); Mean Corpuscular Hemoglobin 29.5 pg (28.0-34.0); Mean Corpuscular Volume 90.5 fl (80-94); Monocytes # 0.8 10^3/uL (0.2-0.9); Monocytes % 11.1 %; Neutrophils % 64.8 %; Nucleated Red Blood Cells % 0 %; Platelet Count 146 10^3/cmm (130-400); Red Blood Count 4.41 10^6/uL (4.1-5.3); Red Cell Distribution Width 12.9 % (12.1-15.1); White Blood Count 7.6 10^3/uL (4.0-10.0)
[2021-09-09 03:44] LABS: Anion Gap 15.5 (5-19); Blood Urea Nitrogen 13 mg/dL (8-23); Calcium 9.3 mg/dL (8.5-10.5); Carbon Dioxide 22 mmol/L (22-29); Chloride 102 mmol/L (98-107); Glomerular Filtration Rate 84.7 mL/min (90-130); Glucose 160 mg/dL (65-115); Osmolality Calculated 284 mOsm/kg (285-295); Potassium 4.5 mmol/L (3.5-5.1); Sodium 135 mmol/L (136-145)
--- NOTE | 2021-09-09 08:20 | P.SS_ITS ---
Short Stay Summary Providers Date of Admit/Discharge: 09/08/21 Attending Provider: Ladarius Willson M.D Primary Care Provider: Constance Miller Chief Complaint: [id number] [id number] HPI History of Present Illness 65 year old male with PMH of diabetes, peripheral artery disease, hypertension with prior history of SFA/popliteal artery stent on the left side has been having lifestyle limiting severe claudication on the left side. We had attempted percutaneous revascularization from contralateral access site however was unsuccessful. He was referred to Dr. Harrington for possible bypass surgery however he recommended to attempt from retrograde approach as risk of graft infection is high given his weight. Plan for revascularization from left PT/popliteal access. Review of Systems Const: Denies: fatigue Eyes: Denies: change in vision ENMT: Denies: throat pain Card: Reports: palpitations, irregular heart rhythm, swelling of feet/ankles, lightheadedness, dyspnea on exertion and leg pain with exertion; Denies: chest pain, edema, syncope, pre-syncope or orthopnea Resp: Denies: dyspnea or non-productive cough GI: Denies: nausea or vomiting : Denies: difficulty urinating Musc: Reports: back pain (chronic); Denies: neck pain Skin/Breast: Denies: rash Neuro: Reports: weakness in extremities; Denies: numbness in extremities Psych: Denies: anxiety, depression, suicidal ideation or homicidal ideation Endo: Denies: tired all the time Mitch/Lymph: Reports: easy bleeding; Denies: easy bruising All/Imm: Reports: seasonal rhinorrhea Home Meds/Allergies Home Medications and Allergies Home Medications Medication Instructions Recorded Confirmed Type fluticasone propionate 50 1 spray INTRANASAL BID PRN 07/14/20 09/08/21 History mcg/actuation nasal spray,suspension furosemide 20 mg tablet 20 mg PO QAM 07/14/20 09/08/21 History glipizide 10 mg tablet 10 mg PO BID 07/14/20 09/08/21 History lisinopril 5 mg tablet 5 mg PO QPM 07/14/20 09/08/21 History meclizine 25 mg tablet 25 mg PO PRN PRN 07/14/20 09/08/21 History metformin 1,000 mg tablet 1,000 mg PO BID 07/14/20 09/08/21 History metoprolol tartrate 25 mg tablet 25 mg PO BID 07/14/20 09/08/21 History simvastatin 20 mg tablet 20 mg PO BEDTIME 07/14/20 09/08/21 History epinephrine [EpiPen] 0.3 mg IM PRN 01/27/21 09/08/21 History hydrocodone-acetaminophen 1 tab PO Q6H PRN 01/27/21 09/08/21 History multivitamin 1 tab PO DAILY 01/27/21 09/08/21 History ropinirole 5 mg PO BEDTIME 01/27/21 09/08/21 History Allergies Allergy/AdvReac Type Severity Reaction Status Date / Time Penicillins Allergy ALGY-Anaphy Verified 08/18/21 14:01 laxis venom-wasp Allergy Unknown Verified 08/18/21 14:01 PFSH Acute PFSH: Medical History Afib Diabetes mellitus Dyslipidemia HTN (hypertension), benign Myocardial bridge Surgical History H/O circumcision H/O colonoscopy (07/29/20) History of rectal surgery Family History Other CAD (coronary artery disease) Cancer Diabetes Hypertension Denies family history of Anesthesia complication Bleeding disorder Social History Alcohol intake: current Alcohol intake frequency: holidays/special occasions only Household members: spouse Marital status: Current occupational status: disabled History of recent travel: No Vitals/I&O/Wt Last Vital Signs Temp 97.6 F 09/08/21 08:09 Pulse 64 09/09/21 04:59 Resp 18 09/09/21 03:20 BP 124/62 09/09/21 03:20 Pulse Ox 92 09/09/21 03:20 09/08/21 09/09/21 09/09/21 22:59 06:59 14:59 Intake Total 480 / 840 240 / 1080 Output Total 800 / 1200 400 / 1600 Balance -320 / -360 -160 / -520 Weight last 48 hrs Weight 305 lb Weight 317 lb Physical Exam Narrative: EXAM NARRATIVE: GENERAL: Patient is alert, awake and oriented x3. [] NECK: No jugular vein distension. [] HEENT: No cyanosis. No icterus. No pallor. [] HEART: Regular S1 and S2. No murmur, rub or gallop. [] LUNGS: Clear to auscultate bilaterally. [] ABDOMEN: Soft, nontender and nondistended. Positive bowel sounds. No guarding, rebound or tenderness. [] CENTRAL NERVOUS SYSTEM: Grossly nonfocal. [] EXTREMITIES: Lower extremities with 2+ edema bilaterally. Pulses palpable in the lower extremities, both dorsalis pedis and posterior tibial. [] Hospital Course Hospital Course 65 year old male with PMH of diabetes, peripheral artery disease, hypertension with prior history of SFA/popliteal artery stent on the left side has been having lifestyle limiting severe claudication on the left side. We had attempted percutaneous revascularization from contralateral access site however was unsuccessful. He was referred to Dr. Harrington for possible bypass surgery however he recommended to attempt from retrograde approach as risk of graft infection is high given his weight. Plan for revascularization from left PT/popliteal access. Patient underwent successful revascularization of distal SFA and popliteal artery with self-expanding stents x2. We initially attempted from PT access however was not successful. We obtained access in the left popliteal artery however wire could not cross. Eventually access was switched over to right renal artery and long sheath was inserted up and over to the left side. Patient stayed stable overnight. He did have some soreness in the popliteal fossa following morning however there was no evidence of hematoma. Labs are stable. Patient discharged in a stable condition with plans to continue aspirin and Plavix. SSS Data Data Completed and Pending: Pending at discharge Category Date Time Status HEAT SEAL OPERATOR request for service Routin e Exams 09/08/21 07:30 Taken Discharge Plan Discharge Patient Disposition: Home Prescriptions: New clopidogrel 75 mg tablet 75 mg PO DAILY Qty: 90 RF: 1 aspirin 81 mg tablet,delayed release (DR/EC) 81 mg PO DAILY Qty: 90 RF: 1 Continued lisinopril 5 mg tablet 5 mg PO QPM RF: 0 simvastatin 20 mg tablet 20 mg PO BEDTIME RF: 0 metoprolol tartrate 25 mg tablet 25 mg PO BID RF: 0 furosemide 20 mg tablet 20 mg PO QAM RF: 0 glipizide 10 mg tablet 10 mg PO BID RF: 0 meclizine 25 mg tablet 25 mg PO PRN PRN (Reason: dizziness) RF: 0 fluticasone propionate [Flonase Allergy Relief] 50 mcg/actuation spray,suspension 1 spray intranasal BID PRN (Reason: allergy symptoms) RF: 0 Victoza 3-Kye 0.6 mg/0.1 mL (18 mg/3 mL) pen injector 1.8 mg SUBCUT Q24H Qty: 27 RF: 3 (DME) FreeStyle Slime 2 Sensor Kit See Rx Instructions .Route Qty: 1 RF: 3 (DME) FreeStyle Slime 2 Kimball Misc See Rx Instructions .Route Qty: 1 RF: 0 multivitamin Tablet 1 tab PO DAILY RF: 0 ropinirole 3 mg tablet 5 mg PO BEDTIME RF: 0 hydrocodone-acetaminophen 7.5-325 mg Tablet 1 tab PO Q6H PRN (Reason: Pain) RF: 0 epinephrine [EpiPen] 0.3 mg/0.3 mL Auto-Injector 0.3 mg IM PRN RF: 0 Held metformin 1,000 mg tablet 1,000 mg PO BID RF: 0 Hold Instructions: Resume on 09/11/21. Discharge Orders: Discharge Order (Routine); Ordered 09/09/21 Ordered By: Ladarius Willson Referrals: Ladarius Willson M.D [Physician] - 1 month (You have an appointment with Dr. Willson on October 19 at 1:45 pm.) Jewels Stubbs FNP [Nurse Practitioner] - 7-10 days (You have an appointment with ONUR Torres on September 18 at 9:30am.) Diet: Diabetic Activity: Increase activity as tolerated Patient Instructions: Peripheral Vascular Stent Placement (DC), Peripheral Vascular Angioplasty (DC) Attestations Medical Necessity Statement*: Care not expected to cross 2 midnights. Patient underwent successful revascularization of distal SFA and popliteal artery. Stayed overnight in the hospital for observation. Time Spent in Patient Care*: less than 30 min Quality Metrics Clinical Quality Measures: During this hospital stay, did patient experience: None Coding Level of Care Code Acute Senior Technical Support Analyst for Amy Salomon
[2021-09-09] MEDS: metoprolol tartrate 25 mg Tablet PO (08:59)
[2021-09-09] MEDS: clopidogrel 75 mg Tablet PO (08:59)
[2021-09-09] MEDS: aspirin 81 mg EC Tablet PO (08:59)
--- NOTE | 2021-09-09 09:30 | PC.NURSE ---
Patient taken to waiting room at his request. Patient's is coming to picjk him up. Patient called .
--- NOTE | 2021-09-09 09:58 | PC.CHAP ---
Pastoral Care Encounter/Spiritual Assessment Type of Contact [] Declined cat scan tech visit [] Patient/Family/Request visit [] Outpatient visit [] Follow-up visit [] Physician referral [] Code/Alert [x] Routine visit [] Staff referral [] Actively dying [] Patient sleeping [] Family support [] [] Out of room [] Palliative care [] [] Receiving care in room [] Pre-surgical visit [] Trauma [] Long length of stay [] ICU visit [x] Other: patient already discharged Relational/Emotional Strength [] Patient feels connected with others/family/visitors/staff [] Distress [] Loneliness/isolation [] Abandonment Spirituality of Patient [] Person of Ambar [] Attends Taoism of their Ambar [] Believes in Prayer [] Reads Bible or Caodaism materials [] There are Spiritual issues to be addressed Renal Dietitian Interventions [] Prayer [] Active listening [] Non-anxious presence [] Spiritual/emotional support [] Crisis/trauma care [] Spiritual counseling [] Bereavement support [] Provided bereavement packet [] Provided Bible/devotional materials [] Provided toy/stuffed animal, coloring book to patient or family member [] Provided Communion [] Anointing/[place] [] Salvation [x] Completed spiritual assessment [] Other: Impact on Illness or Injury [] Angry [] Fearful [] Anxious [] Often cries [] Exhaustion [] Unable to work [] Unable to attend episcopalian [] Unable to walk/stand [] Unable to read [] Unable to drive [] Unable to eat/drink [] Unable to sleep [] Unable to be with family [] Patient intubated [] Other: Summary Time spent with patient
== END 2021-09-09 09:40 | disposition home or self-care (01) ==
LOC: CCL 07:17 → CSU 10:36
PROVIDERS: PCP Nurse Practitioner Family; Visit Provider Internal Medicine
DX: I70.212 Atherosclerosis of native arteries of extremities with intermittent claudication, left leg (principal); I10 Essential (primary) hypertension; E78.5 Hyperlipidemia, unspecified; E66.9 Obesity, unspecified; Z68.42 Body mass index [BMI] 45.0-49.9, adult; Z87.891 Personal history of nicotine dependence; I48.91 Unspecified atrial fibrillation; E11.9 Type 2 diabetes mellitus without complications; Z79.84 Long term (current) use of oral hypoglycemic drugs
CPT/HCPCS: 36415; 37226; 75710; 80048; 85025; 85730; C1725; C1769; C1876; C1887; C1894; J1644; J2250; J3010; J3490; J7030; Q0163; Q9967

== ENCOUNTER → 2021-09-28 09:00 | Outpatient (BNVA) | payer MEDICARE, SELFPAY | PROVIDERS: PCP Nurse Practitioner Family; Visit Provider Nurse Practitioner Family | DX: I73.9 Peripheral vascular disease, unspecified (principal) | CPT/HCPCS: 80048 ==

== ENCOUNTER → 2021-11-06 08:35 | Outpatient (BNVA) | payer MEDICARE, SELFPAY | PROVIDERS: PCP Nurse Practitioner Family; Visit Provider Internal Medicine | DX: E11.9 Type 2 diabetes mellitus without complications (principal); E78.5 Hyperlipidemia, unspecified | CPT/HCPCS: 80053; 80061; 83036 ==

== ENCOUNTER → 2021-11-10 11:00 | Outpatient (BNVA) | payer MEDICARE, SELFPAY | PROVIDERS: PCP Nurse Practitioner Family; Visit Provider Internal Medicine | DX: E11.9 Type 2 diabetes mellitus without complications (principal); E78.5 Hyperlipidemia, unspecified; E16.0 Drug-induced hypoglycemia without coma; Z79.84 Long term (current) use of oral hypoglycemic drugs; Z87.891 Personal history of nicotine dependence | CPT/HCPCS: 99214 ==

== ENCOUNTER → 2021-12-23 15:42 | Outpatient (BNVA) | payer MEDICARE, SELFPAY | PROVIDERS: PCP Nurse Practitioner Family; Visit Provider Internal Medicine | DX: I73.9 Peripheral vascular disease, unspecified (principal); I10 Essential (primary) hypertension; I48.91 Unspecified atrial fibrillation; E11.9 Type 2 diabetes mellitus without complications; Z87.891 Personal history of nicotine dependence; Z79.82 Long term (current) use of aspirin; Z79.84 Long term (current) use of oral hypoglycemic drugs | CPT/HCPCS: 99214 ==

== ENCOUNTER → 2022-02-12 08:08 | Outpatient (BNVA) | payer MEDICARE, SELFPAY | PROVIDERS: PCP Nurse Practitioner Family; Visit Provider Internal Medicine | DX: E11.9 Type 2 diabetes mellitus without complications (principal); E11.59 Type 2 diabetes mellitus with other circulatory complications; E78.5 Hyperlipidemia, unspecified; I73.9 Peripheral vascular disease, unspecified; Z87.891 Personal history of nicotine dependence; Z79.84 Long term (current) use of oral hypoglycemic drugs | CPT/HCPCS: 99214 ==

== ENCOUNTER 2022-03-30 08:58 | Outpatient (CLI) | payer MEDICARE, SELFPAY ==
--- NOTE | 2022-03-30 09:00 | CT_ITS ---
WS: [id number] CTA ABDOMINAL AORTA WITH RUNOFF TECHNIQUE: Contrast enhanced CTA of the abdominal aorta with bilateral lower extremity runoff. Multip lanar reformatted images were obtained. MIP reformats were also reviewed. Injected x2 due to poor opa cification. CLINICAL INFORMATION: AAA assessment COMPARISON: CT abdomen pelvis 11 018 DLP: 1516.[address] scans at [facility] use at least one of these dose optimization techniques: automated e xposure control; mA and/or kV adjustment per patient size (includes targeted exams where dose is matc hed to clinical indication); or iterative reconstruction. FINDINGS: Aneurysmal dilatation distal abdominal aorta with peripheral mural thrombus. Aneurysm measu res approximately 3.1 x 3.4 CM. This is not significantly changed since 2018. Lung bases are well aerated. Celiac is patent. Mild atheromatous plaque proximal SMA origin which rem ains patent. Mild atheromatous plaque proximal renal arteries with mild to moderate renal ostial sten osis. Moderate stenosis in the mid LEFT renal artery measuring approximately 40% which remains patent . MONY is patent. RIGHT: RIGHT common iliac artery is patent. Internal and external iliac arteries are patent. RIGHT co mmon femoral artery is patent. Dense calcification at the origin of the deep femoral artery which is patent. Superficial femoral artery is patent to the adductor hiatus. Aneurysmal dilatation popliteal artery measuring 11 mm above the knee. Popliteal artery is patent to the trifurcation with three-vess el runoff to the ankle. LEFT: LEFT common iliac artery is patent. Internal iliac artery is patent. External iliac artery is p atent. Common femoral artery is patent. Superficial and deep femoral arteries are patent. Stent in th e popliteal artery at the adductor hiatus. Partially thrombosed popliteal artery aneurysm. Suggestion of stenosis within the distal popliteal stent just above the knee. Distal popliteal artery is patent to the trifurcation with normal three-vessel runoff to the ankle. Bilateral lower extremities subcutaneous edema. Normal liver. Normal portal vein and splenic vein. Normal spleen. Normal GE junction. Lung bases are well aerated. Splenic vein is patent. Adrenal glands are normal. No hydronephrosis in either kidney. Sigmoid diverticulosis. No evidence of acute diverticulitis. CT/CT angio abd aorta runof [id number] IMPRESSION: 1. Stable infrarenal abdominal aortic aneurysm with peripheral mural thrombus measuring 3.1 x 3.4 cm AP by transverse. 2. Normal RIGHT lower extremity runoff. 3. LEFT popliteal artery stent appears patent with suggestion of moderate sten osis in the distal stent at the distal junction. Popliteal artery is patent to the trifurcation with normal three-vessel runoff to the ankle. 4. Aneurysmal dilatation RIGHT popliteal artery measuring 11 mm above the knee . 5. Mild to moderate bilateral renal ostial stenosis with calcification. Modera te 40% stenosis of the mid LEFT renal artery.
[2022-03-30 09:51] LABS: Blood Urea Nitrogen 17 mg/dL (8-23); Glomerular Filtration Rate 74.8 mL/min (90-130)
[2022-03-30] MEDS: iohexol 350 mg/mL 100 mL Btl IV (10:17)
== END 2022-03-30 08:59 | disposition home or self-care (01) ==
LOC: RAD 08:58
PROVIDERS: PCP Nurse Practitioner Family; Visit Provider Internal Medicine
DX: Z13.6 Encounter for screening for cardiovascular disorders (principal); I71.4 Abdominal aortic aneurysm, without rupture; I70.1 Atherosclerosis of renal artery
CPT/HCPCS: 75635; 82565; 84520

== ENCOUNTER → 2022-05-27 14:39 | Outpatient (BNVA) | payer MEDICARE, SELFPAY | PROVIDERS: PCP Nurse Practitioner Family; Visit Provider Surgery | DX: R22.2 Localized swelling, mass and lump, trunk (principal) | CPT/HCPCS: 99203 ==

== ENCOUNTER → 2022-06-17 15:13 | Outpatient (BNVA) | payer MEDICARE, SELFPAY | PROVIDERS: PCP Nurse Practitioner Family; Visit Provider Internal Medicine | DX: I73.9 Peripheral vascular disease, unspecified (principal); I48.91 Unspecified atrial fibrillation; E11.9 Type 2 diabetes mellitus without complications; Z79.84 Long term (current) use of oral hypoglycemic drugs; I10 Essential (primary) hypertension; F17.220 Nicotine dependence, chewing tobacco, uncomplicated | CPT/HCPCS: 99214 ==

== ENCOUNTER → 2022-06-22 11:50 | Day surgery (SDC) | payer MEDICARE, SELFPAY ==
[2022-06-22 12:30] VITALS: BP 131/77; PULSE 63; RESP 18; TEMP 36.1; O2SAT 97
== END ==
PROVIDERS: PCP Nurse Practitioner Family; Visit Provider Surgery
DX: Z01.818 Encounter for other preprocedural examination (principal)

== ENCOUNTER 2022-07-13 05:20 | Day surgery (SDC) | payer MEDICARE, SELFPAY ==
[2022-07-12 15:08] VITALS: BMI 48.0
[2022-07-13] VITALS (9 sets, daily range): BP systolic 116–144; BP diastolic 70–84; PULSE 52–59; RESP 13–18; TEMP 36.2–36.5; O2SAT 95–98
--- NOTE | 2022-07-13 05:54 | P.HP_ITS ---
Same Day Surgery H&P Indication for Procedure/HPI DATE OF PROCEDURE: July 13, 2022 CHIEF COMPLAINT/INDICATIONFOR SURGICAL PROCEDURE: I have a lump on my side PREOP DIAGNOSIS: Left-sided torso mass PLANNED PROCEDURE: Operation Date: 07/13/22 07:00 Proposed Procedures p excision of left side torso mass 64211,R2.2(Left) - Nicola Acosta MD This is a pleasant 66 years old gentleman referred to my practice with a growing lump on the left side of his torso. Patient was previously scheduled but unfortunately the Plavix was not held and subsequently the patient was rescheduled for today. ROS All systems have been reviewed negative except as for the above or per problem list. Medications/Allergies* Home Medications Medication Instructions Recorded Confirmed Type fluticasone propionate 50 1 spray intranasal BID PRN allergy 07/14/20 06/22/22 History mcg/actuation nasal symptoms spray,suspension (Flonase Allergy Relief) lisinopril 5 mg tablet 5 mg PO QPM 07/14/20 06/22/22 History meclizine 25 mg tablet 25 mg PO PRN PRN dizziness 07/14/20 06/22/22 History metformin 1,000 mg tablet 1,000 mg PO BID 07/14/20 06/22/22 History metoprolol tartrate 25 mg tablet 25 mg PO BID 07/14/20 06/22/22 History simvastatin 20 mg tablet 20 mg PO BEDTIME 07/14/20 06/22/22 History epinephrine 0.3 mg/0.3 mL 0.3 mg IM PRN 01/27/21 06/22/22 History injection, auto-injector (EpiPen) hydrocodone 7.5 mg-acetaminophen 1 tab PO Q6H PRN Pain 01/27/21 06/22/22 History 325 mg tablet multivitamin 1 tab PO DAILY 01/27/21 06/22/22 History ropinirole 3 mg tablet 5 mg PO BEDTIME see pharmacy 01/27/21 06/22/22 History comments clopidogrel 75 mg tablet (Plavix) 75 mg PO DAILY 06/21/22 06/22/22 History Allergies/Adverse Reactions Allergy/AdvReac Type Severity Reaction Status Date / Time Penicillins Allergy ALGY-Anaphy Verified 07/13/22 05:54 laxis venom-wasp Allergy Unknown Verified 07/13/22 05:54 Pertinent History/Comorbid Conditions* Medical History (Updated 05/29/22 @ 05:54 by Nicola Acosta MD) Afib Diabetes mellitus Dyslipidemia HTN (hypertension), benign Myocardial bridge Surgical History (Updated 07/29/20 @ 11:16 by Gordon Alcantara MD) H/O circumcision H/O colonoscopy (07/29/20) History of rectal surgery Family History (Updated 07/14/20 @ 11:04 by Heather Reagan LPN) Diabetes CAD (coronary artery disease) Cancer Hypertension Denies family history of Anesthesia complication Bleeding disorder Social History Smoking and tobacco status: current every day smoker (chew tobacco) Alcohol intake: current Alcohol intake frequency: holidays/special occasions only Household members: spouse Marital status: Current occupational status: disabled History of recent travel: No Pertinent Exam Findings alert, oriented x 3, operative site marked (Left-sided torso mass) and procedure specific exam findings (Abdominal exam nontender nondistended soft) Recommendations Surgery/Procedure today (Excision of left-sided torso mass) Coding Level of Care Code Acute Patient Support Assistant for Amy Salomon
--- NOTE | 2022-07-13 06:32 | ANES.PREANE2 ---
Pre-Anesthetic Assessment Height/Weight: Height 1.7 m Weight 139.253 kg Temp Pulse Resp BP Pulse Ox O2 Del Method 97.7 F 59 L 18 140/82 96 07/13/22 06:08 07/13/22 06:08 07/13/22 06:08 07/13/22 06:08 07/13/22 06:08 07/13/22 06:14 Preop Diagnosis: Left-sided torso mass Operation Date: 07/13/22 07:00 Proposed Procedures p excision of left side torso mass 57941,R2.2(Left) - Nicola Acosta MD Familial anesthetic complications: None Was Beta Roni taken within 24 hours: Yes Was Clonidine taken within 24 hours: N/A Last intake: Intake Last Liquid Date 07/12/22 Last Liquid Time 21:30 Last Solid Date 07/12/22 Last Solid Time 20:00 Social No alcohol and No tobacco Exam alert, oriented x 3, clear to auscultation bilaterally and regular rate & rhythm Airway Mallampati: Class III Dentition: false CV/HEM Atrial Fibrillation, Hypertension and Peripheral Vascular Disease Metabolic Diabetes Mellitus, Hyperlipidemia and Morbid Obesity Anesthetic Plan ASA status: 3 Anesthesia: General Risk of > 500 ml blood loss (7ml/kg in children): No Medications/Allergies Home Medications Medication Instructions Recorded Confirmed Last Taken Type fluticasone propionate 50 1 spray intranasal BID PRN allergy 07/14/20 07/13/22 Unknown History mcg/actuation nasal symptoms spray,suspension (Flonase Allergy Relief) lisinopril 5 mg tablet 5 mg PO QPM 07/14/20 07/13/22 07/12/22 History meclizine 25 mg tablet 25 mg PO PRN PRN dizziness 07/14/20 07/13/22 07/20/20 History metformin 1,000 mg tablet 1,000 mg PO BID 07/14/20 07/13/22 07/12/22 History metoprolol tartrate 25 mg tablet 25 mg PO BID 07/14/20 07/13/22 07/12/22 History simvastatin 20 mg tablet 20 mg PO BEDTIME 07/14/20 07/13/22 07/12/22 History epinephrine 0.3 mg/0.3 mL 0.3 mg IM PRN 01/27/21 07/13/22 Unknown History injection, auto-injector (EpiPen) hydrocodone 7.5 mg-acetaminophen 1 tab PO Q6H PRN Pain 01/27/21 07/13/22 Unknown History 325 mg tablet multivitamin 1 tab PO DAILY 01/27/21 07/13/22 07/09/22 History ropinirole 3 mg tablet 5 mg PO BEDTIME see pharmacy 01/27/21 07/13/22 07/12/22 History comments flash glucose scanning reader #1 ea 08/04/21 06/17/22 Unknown Rx (FreeStyle Slime 2 [place]) flash glucose sensor (FreeStyle #1 ea 08/04/21 06/17/22 Unknown Rx Slime 2 Sensor kit) liraglutide 0.6 mg/0.1 mL (18 mg/3 1.8 mg (0.3 mL) SUBCUT Q24H #27 mL 08/04/21 07/13/22 07/12/22 Rx mL) subcutaneous pen injector ([employer] Digital 3-Kye) cilostazol 50 mg tablet 50 mg PO BID #180 tabs 11/11/21 07/13/22 07/08/22 Rx furosemide 20 mg tablet 20 mg PO BID #180 tabs 12/23/21 07/13/22 06/21/22 Rx clopidogrel 75 mg tablet (Plavix) 75 mg PO DAILY 06/21/22 07/13/22 07/08/22 History Allergies Allergy/AdvReac Type Severity Reaction Status Date / Time Penicillins Allergy ALGY-Anaphy Verified 07/13/22 05:54 laxis venom-wasp Allergy Unknown Verified 07/13/22 05:54 PFS Anesthesia Medical History Afib Diabetes mellitus Dyslipidemia HTN (hypertension), benign Myocardial bridge Surgical History H/O circumcision H/O colonoscopy (07/29/20) History of rectal surgery Family History Other CAD (coronary artery disease) Cancer Diabetes Hypertension Denies family history of Anesthesia complication Bleeding disorder Social History Smoking and tobacco status: current every day smoker (chew tobacco) Alcohol intake: current Alcohol intake frequency: holidays/special occasions only Household members: spouse Marital status: Current occupational status: disabled History of recent travel: No Data Anesthesia Cardiac Studies: Echocardiogram Ultrasound 01/28/21 Sestamibi Stress Test (Cardiology) 01/27/21
[2022-07-13] MEDS: heparin 5,000 unit/mL INJ 1 mL 2000 UNIT SUBCUT (06:35)
[2022-07-13] MEDS: acetaminophen 1,000 MG/100 ML PIGGYBACK 400 MG IV (06:36)
[2022-07-13] MEDS: sodium chloride 0.9% 1,000 ML 30 ML IV (06:37)
[2022-07-13 06:40] LABS: Glucose Point of Care 194 mg/dL (70-110)
[2022-07-13] MEDS: clindamycin 900 MG/50 ML PREMIX 100 MG IV (06:50)
[2022-07-13] MEDS: lidocaine 1% INJ 20 mL SUBCUT (07:17)
--- NOTE | 2022-07-13 07:35 | PM.OP ---
Operative Report Date of procedure: July 13, 2022 Pre-op diagnosis: Preop Diagnosis Left-sided torso mass Post-op diagnosis: Lipoma of the left side of the torso Procedure done: Excision of subcutaneous lipoma of the left side of the torso Specimens removed/disposition: 5 x 7 cm Surgeon: Nicola Acosta MD Credit Authorizer: weight reducing technician Ebenezer Circulating nurse Bernadine Anesthesia: General (LMA PROTECTIVE SIGNAL INSTALLER Mihir) Estimated blood loss (mL): 5 Procedure: After identifying the patient holding area, the side of torso mass was marked before the procedure by myself, patient was then taken to the operative suite, was placed in supine position, LMA was placed by the anesthesia provider, prophylactic IV antibiotics were given per protocol, patient was positioned in right lateral position were all pressure points were padded and axillary roll was placed under the right axilla. Patient was appropriately secured to the bed. Prep and drape of the left side of the torso was done under the usual sterile technique. Time-out was done verifying the patient's name/date of /planned procedure and destination after the procedure, all were in agreement. After palpation of the sided torso mass and, I did a transfer incision on top of the mass corresponding to the skin crease dissection was carried after the skin incision all the way to the subcutaneous tissues, subcutaneous lipoma measures about 5 x 7 cm was totally dissected and passed to the circulating nurse for permanent pathology. Thorough irrigation of the cavity was done and hemostasis, followed by deep dermal closure by 2-0 Vicryl, then 4-0 Monocryl for skin closure.Lidocaine 1% was injected at the site of the incision that prior to the injection aspiration was done to make sure no injection is going into any vessel, followed by Dermabond followed by pressure dressing. Patient tolerated the procedure well, count of instruments, needles and sponges were completed at the end of the procedure. And then patient was taken to the recovery area in stable condition. I Was present for the whole entire procedure
--- NOTE | 2022-07-13 16:28 | ANE.PACU2 ---
Inpatient post-anesthesia follow up: Airway intact: Yes Vital signs: Temperature 97.1 F Pulse Rate 57 Respiratory Rate 18 Blood Pressure 135/74 Pulse Oximetry 96 Oxygen Delivery Me thod Room Air Oxygen Flow Rate 8 Fraction of Inspir ed Oxygen Hydration adequate: Yes Nausea and vomiting: No Pain level: 1 Mental status: Baseline
== END 2022-07-13 09:05 | disposition home or self-care (01) ==
PROVIDERS: PCP Nurse Practitioner Family; Visit Provider Surgery
PROC: (CPT 11406; principal; 2022-07-13 07:00)
DX: D17.1 Benign lipomatous neoplasm of skin and subcutaneous tissue of trunk (principal); I48.91 Unspecified atrial fibrillation; I10 Essential (primary) hypertension; I73.9 Peripheral vascular disease, unspecified; E11.9 Type 2 diabetes mellitus without complications; E78.5 Hyperlipidemia, unspecified; E66.01 Morbid (severe) obesity due to excess calories; Z68.42 Body mass index [BMI] 45.0-49.9, adult; F17.220 Nicotine dependence, chewing tobacco, uncomplicated
CPT/HCPCS: 11406; 12032; 36416; 82962; 88304; J0131; J0330; J1100; J1644; J2405; J2704; J3010; J3490; J7030

== ENCOUNTER → 2022-07-28 08:34 | Outpatient (BNVA) | payer MEDICARE, SELFPAY | PROVIDERS: PCP Nurse Practitioner Family; Visit Provider Surgery | DX: Z09 Encounter for follow-up examination after completed treatment for conditions other than malignant neoplasm (principal) | CPT/HCPCS: 99024 ==

== ENCOUNTER → 2022-08-12 08:05 | Outpatient (BNVA) | payer MEDICARE, SELFPAY | PROVIDERS: PCP Family Medicine; Visit Provider Internal Medicine | DX: E11.649 Type 2 diabetes mellitus with hypoglycemia without coma (principal); E16.0 Drug-induced hypoglycemia without coma; E78.5 Hyperlipidemia, unspecified; I10 Essential (primary) hypertension; I73.9 Peripheral vascular disease, unspecified; Z79.84 Long term (current) use of oral hypoglycemic drugs | CPT/HCPCS: 99214 ==

== ENCOUNTER → 2022-12-16 15:09 | Outpatient (BNVA) | payer MEDICARE, SELFPAY | PROVIDERS: PCP Family Medicine; Visit Provider Internal Medicine | DX: I73.9 Peripheral vascular disease, unspecified (principal); I48.91 Unspecified atrial fibrillation; E11.9 Type 2 diabetes mellitus without complications; I10 Essential (primary) hypertension; F17.220 Nicotine dependence, chewing tobacco, uncomplicated; Z79.84 Long term (current) use of oral hypoglycemic drugs | CPT/HCPCS: 99214 ==

== ENCOUNTER → 2023-02-08 08:45 | Outpatient (BNVA) | payer MEDICARE, SELFPAY | PROVIDERS: PCP Family Medicine; Visit Provider Internal Medicine | DX: E11.9 Type 2 diabetes mellitus without complications (principal); E78.5 Hyperlipidemia, unspecified; I10 Essential (primary) hypertension; E16.0 Drug-induced hypoglycemia without coma | CPT/HCPCS: 80053; 80061; 82043; 83036 ==

== ENCOUNTER → 2023-02-09 10:32 | Outpatient (BNVA) | payer MEDICARE, SELFPAY | PROVIDERS: PCP Family Medicine; Visit Provider Internal Medicine | DX: E11.649 Type 2 diabetes mellitus with hypoglycemia without coma (principal); E16.0 Drug-induced hypoglycemia without coma; I10 Essential (primary) hypertension; E78.5 Hyperlipidemia, unspecified; Z79.84 Long term (current) use of oral hypoglycemic drugs | CPT/HCPCS: 99214 ==

== ENCOUNTER → 2023-08-11 10:51 | Outpatient (BNVA) | payer MEDICARE, SELFPAY | PROVIDERS: PCP Family Medicine; Visit Provider Internal Medicine | DX: E78.5 Hyperlipidemia, unspecified (principal); E11.649 Type 2 diabetes mellitus with hypoglycemia without coma; E16.0 Drug-induced hypoglycemia without coma; I10 Essential (primary) hypertension; Z79.84 Long term (current) use of oral hypoglycemic drugs | CPT/HCPCS: 99214 ==

== ENCOUNTER → 2023-08-15 08:23 | Outpatient (BNVA) | payer MEDICARE, SELFPAY | PROVIDERS: PCP Family Medicine; Visit Provider Internal Medicine | DX: I10 Essential (primary) hypertension (principal); E78.5 Hyperlipidemia, unspecified; E11.9 Type 2 diabetes mellitus without complications; E16.0 Drug-induced hypoglycemia without coma | CPT/HCPCS: 80053; 80061; 82043; 83036 ==

== ENCOUNTER → 2023-10-13 08:54 | Outpatient (BNVA) | payer MEDICARE, SELFPAY | PROVIDERS: PCP Family Medicine; Visit Provider Nurse Practitioner Family | DX: I10 Essential (primary) hypertension (principal); I48.0 Paroxysmal atrial fibrillation; Z98.890 Other specified postprocedural states | CPT/HCPCS: 99214 ==

== ENCOUNTER → 2023-12-01 08:05 | Outpatient (BNVA) | payer MEDICARE, SELFPAY | PROVIDERS: PCP Family Medicine; Visit Provider Internal Medicine | DX: E78.5 Hyperlipidemia, unspecified (principal); E11.9 Type 2 diabetes mellitus without complications; E16.0 Drug-induced hypoglycemia without coma; I10 Essential (primary) hypertension | CPT/HCPCS: 80053; 80061; 82043; 83036 ==

== ENCOUNTER → 2023-12-09 10:38 | Outpatient (BNVA) | payer MEDICARE, SELFPAY | PROVIDERS: PCP Family Medicine; Visit Provider Internal Medicine | DX: E16.0 Drug-induced hypoglycemia without coma (principal); E11.649 Type 2 diabetes mellitus with hypoglycemia without coma; E78.5 Hyperlipidemia, unspecified; I10 Essential (primary) hypertension; Z79.84 Long term (current) use of oral hypoglycemic drugs | CPT/HCPCS: 99214 ==

== ENCOUNTER 2024-04-11 09:58 | Outpatient (CLI) | payer MEDICARE, SELFPAY ==
[2024-04-11 10:45] LABS: Alanine Aminotransferase 19 U/L (0-41); Albumin Level 4.2 g/dL (3.5-5.2); Alkaline Phosphatase 77 U/L (40-130); Anion Gap 13.5 (5-19); Aspartate Amino Transferase 12 U/L (0-40); Blood Urea Nitrogen 16 mg/dL (8-23); Carbon Dioxide 27 mmol/L (22-29); Chloride 100 mmol/L (98-107); Chol HDL Ratio 3.73 mg/dL (1.0-5.00); Cholesterol 168 mg/dL (0-200); Globulin 3.1 g/dL (1.3-4.6); Glomerular Filtration Rate 96.1 mL/min (90-130); Glucose 197 mg/dL (65-115); HDL Cholesterol 45 mg/dL (60-100); LDL Cholesterol Calculated 83 mg/dL (50-129); LDL HDL Ratio 1.84 RATIO (0.00-3.22); Osmolality Calculated 289 mOsm/kg (285-295); Potassium 4.5 mmol/L (3.5-5.1); Sodium 136 mmol/L (136-145); Total Bilirubin 0.3 mg/dL (0.15-1.2); Total Protein 7.3 g/dL (6.6-8.7); Triglycerides 202 mg/dL (0-150)
[2024-04-11 10:57] LABS: Estmated Average Glucose 183
[2024-04-11 11:05] LABS: Creatinine Urine, Random 101 mg/dL (39-259); Microalbum Creatinine Ratio Ur 10 mg/dL (0-20); Microalbumin Random Urine 1 ug/dL (0-20)
== END 2024-04-11 09:59 | disposition home or self-care (01) ==
LOC: LAB 09:59
PROVIDERS: PCP Family Medicine; Visit Provider Internal Medicine
DX: E11.649 Type 2 diabetes mellitus with hypoglycemia without coma (principal); E78.5 Hyperlipidemia, unspecified; E16.0 Drug-induced hypoglycemia without coma; I10 Essential (primary) hypertension
CPT/HCPCS: 36415; 80053; 80061; 82044; 83036

== ENCOUNTER → 2024-04-12 14:16 | Outpatient (BNVA) | payer MEDICARE, SELFPAY | PROVIDERS: PCP Family Medicine; Visit Provider Internal Medicine | DX: I73.9 Peripheral vascular disease, unspecified (principal); I48.0 Paroxysmal atrial fibrillation; E11.9 Type 2 diabetes mellitus without complications; I10 Essential (primary) hypertension; Z87.891 Personal history of nicotine dependence; Z79.84 Long term (current) use of oral hypoglycemic drugs | CPT/HCPCS: 99214 ==

== ENCOUNTER → 2024-04-16 08:30 | Outpatient (BNVA) | payer MEDICARE, SELFPAY | PROVIDERS: PCP Family Medicine; Visit Provider Internal Medicine | DX: E16.0 Drug-induced hypoglycemia without coma (principal); E78.5 Hyperlipidemia, unspecified; I10 Essential (primary) hypertension; E11.649 Type 2 diabetes mellitus with hypoglycemia without coma; Z79.84 Long term (current) use of oral hypoglycemic drugs | CPT/HCPCS: 99214 ==

== ENCOUNTER → 2024-07-18 09:37 | Outpatient (BNVA) | payer MEDICARE, SELFPAY | PROVIDERS: PCP Family Medicine; Visit Provider Nurse Practitioner Family | DX: I73.9 Peripheral vascular disease, unspecified (principal); Z98.890 Other specified postprocedural states; E78.5 Hyperlipidemia, unspecified; E11.622 Type 2 diabetes mellitus with other skin ulcer; L97.929 Non-pressure chronic ulcer of unspecified part of left lower leg with unspecified severity; Z87.891 Personal history of nicotine dependence; Z79.84 Long term (current) use of oral hypoglycemic drugs | CPT/HCPCS: 99214 ==

== ENCOUNTER 2024-08-07 09:43 | Outpatient (CLI) | payer MEDICARE, SELFPAY ==
[2024-08-07 11:22] LABS: Blood Urea Nitrogen 19 mg/dL (8-23); Glomerular Filtration Rate 83.9 mL/min (90-130)
== END 2024-08-07 09:44 | disposition home or self-care (01) ==
PROVIDERS: PCP Family Medicine; Visit Provider Nurse Practitioner Family
DX: I73.9 Peripheral vascular disease, unspecified (principal); Z98.890 Other specified postprocedural states
CPT/HCPCS: 82565; 84520

== ENCOUNTER 2024-08-09 09:46 | Outpatient (CLI) | payer MEDICARE, SELFPAY ==
--- NOTE | 2024-08-09 09:52 | CTR_ITS ---
PROCEDURE INFORMATION: Exam: CTA Abdominal Aorta and Bilateral Lower Extremities (Run-off) With Contrast Exam date and time: 08/09/2024 10:24 AM Age: 68 years old Clinical indication: Other: Leg pain; Prior surgery; Surgery date: 6+ months; Surgery type: Left leg stent, hernia; Additional info: HX of pad, stents, resting leg pain TECHNIQUE: Imaging protocol: Computed tomographic angiography of the of the abdominal aorta, pelvis and bilateral lower extremities with contrast. 3D rendering (Not supervised by radiologist): MIP and/or 3D reconstructed images were created by the technologist. Radiation optimization: All CT scans at this facility use at least one of these dose optimization techniques: automated exposure control; mA and/or kV adjustment per patient size (includes targeted exams where dose is matched to clinical indication); or iterative reconstruction. Contrast material: OMNI 350; Contrast volume: 120 ml; Contrast route: INTRAVENOUS (IV); COMPARISON: CT angio abd aorta runof [id number] 03/30/2022 9:55 AM RADIATION DOSE METRICS: Total DLP (mGy-cm): 4009.48 FINDINGS: Aorta: There is moderate aortic atherosclerotic disease. There is a fusiform aneurysm of the infrarenal abdominal aorta measuring 3.7 x 3.7 cm, stable since 03/30/2022. There is no aortic luminal narrowing. Celiac trunk and mesenteric arteries: Mild plaque with less than 50% stenosis of the superior mesenteric artery origin. Celiac artery is normal. Inferior mesenteric artery is patent. Renal arteries: Mild calcific plaque with less than 50% stenosis of the renal artery origins bilaterally. Right iliac arteries: Mild calcific plaque with less than 50% stenosis in right common, internal and external iliac arteries. Right femoral/popliteal arteries: Mild calcific plaque with less than 50% stenosis in the right common femoral artery. Less than 50% stenosis of the right profunda femoris artery origin. Mild plaque with less than 50% stenosis in the right superficial femoral artery. Fusiform dilation of the right proximal popliteal artery measures 13 mm diameter. No hemodynamically significant stenosis in the right popliteal artery. Right infrapopliteal arteries: Mild right infrapopliteal arterial atherosclerotic disease. Patent 3 vessel runoff to the right lower leg. Contrast fades distally in the right infrapopliteal arteries, related to contrast bolus timing. Left iliac arteries: Mild calcific plaque with less than 50% stenosis in the left common, internal and external iliac arteries. Left femoral/popliteal arteries: Mild calcific plaque with less than 50% stenosis in the left common femoral artery. No stenosis in the left profunda femoris artery. No stenosis in the left proximal femoral artery. Patent stent in the left femoral artery at Ru's canal. Probable hemodynamically significant stenosis at the junction of left femoral artery stent and popliteal artery (poorly visualized on this exam). Moderate plaque with less than 50% stenosis in the left distal popliteal artery. Left infrapopliteal arteries: No significant infrapopliteal arterial atherosclerotic disease on the left. There is patent anterior and posterior tibial artery runoff to the left foot. Contrast fades distally in the left peroneal artery. Veins: There is a filling defect in the distended left popliteal vein extending into the infrapopliteal veins. The portal, splenic and superior mesenteric veins are patent. Lungs: Lung bases are clear. Liver: The liver is mildly enlarged. There is no focal liver abnormality. Gallbladder and biliary ducts: The gallbladder is normal. There is no biliary dilation. Pancreas: The pancreas is unremarkable. Spleen: The spleen is unremarkable. Adrenal glands: The adrenal glands are unremarkable. Kidneys and ureters: There is contrast in the renal collecting systems which would obscure small stones if present. There is no hydronephrosis or stones. Renal parenchymal enhancement pattern is normal bilaterally. Stomach and bowel: The stomach is nondistended, limiting assessment of wall thickness. There is a non-inflamed diverticulum in the proximal duodenum. The small bowel is nondilated. There is mild sigmoid colonic diverticulosis without evidence of diverticulitis. Appendix: The appendix is normal. Urinary bladder: The urinary bladder is unremarkable. Reproductive: The prostate and seminal vesicles are unremarkable. Intraperitoneal space: There is no free air or significant intraperitoneal free fluid. Lymph nodes: There is no lymphadenopathy in the retroperitoneum, mesentery, pelvis or inguinal regions. Bones/joints: Bones in the lower extremities are unremarkable. There is mild degenerative disease in the lumbar spine. The pelvis and hips are unremarkable. Soft tissues: There is subcutaneous edema in the lower legs and feet bilaterally, asymmetrically greater on the left. The abdominal wall is intact. CT/CT angio abd aorta runof [id number] IMPRESSION: 1. Left popliteal and infrapopliteal deep venous thrombosis of indeterminate age. Recommend follow-up venous Doppler ultrasound to evaluate the extent of thrombus. 2. Patent stent in the left distal femoral artery with probable hemodynamically significant stenosis at its junction with the popliteal artery (suboptimally evaluated on this exam). Consider ultrasound evaluation of the left femoral artery stent for more accurate estimation of the degree of stenosis. 3. No hemodynamically significant arterial stenosis is identified elsewhere in left lower extremity. 4. No hemodynamically significant arterial stenosis in the right lower extremity. 5. Stable 3.7 cm fusiform infrarenal abdominal aortic aneurysm since 03/30/2022. 6. Incidental findings above.
[2024-08-09] MEDS: iohexol 350 mg/mL 500 mL Btl (per mL) IV (10:57)
== END 2024-08-09 09:47 | disposition home or self-care (01) ==
LOC: RAD 09:47
PROVIDERS: PCP Family Medicine; Visit Provider Nurse Practitioner Family
DX: I73.9 Peripheral vascular disease, unspecified (principal); I82.532 Chronic embolism and thrombosis of left popliteal vein; I71.43 Infrarenal abdominal aortic aneurysm, without rupture; I70.0 Atherosclerosis of aorta; Z98.890 Other specified postprocedural states; Z95.828 Presence of other vascular implants and grafts
CPT/HCPCS: 75635

== ENCOUNTER → 2024-08-16 08:38 | Outpatient (BNVA) | payer MEDICARE, SELFPAY | PROVIDERS: PCP Family Medicine; Visit Provider Internal Medicine | DX: E78.5 Hyperlipidemia, unspecified (principal); E11.9 Type 2 diabetes mellitus without complications; I10 Essential (primary) hypertension; E16.0 Drug-induced hypoglycemia without coma | CPT/HCPCS: 99214 ==

== ENCOUNTER 2024-09-11 12:17 | Outpatient (CLI) | payer MEDICARE, SELFPAY ==
--- NOTE | 2024-09-11 12:45 | USCV_ITS ---
Regis Fuentes Age: 68 Gender: M : 1955 Exam Date: 09/11/2024 12:33 Ordering Phys: Jewels Stubbs Technologist: AN Exam Location: [facility] [place]_ Indication: DVT visualized on prior ct scan PROCEDURES: Venous duplex imaging was performed in only the left lower extremity. The following venous structures were evaluated: common femoral vein, profunda vein, proximal portion of the greater saphenous vein, superficial femoral vein, and the popliteal vein. In addition, the posterior tibial and peroneal trunk were evaluated. FINDINGS: Examination was technically limited due to body habitus. Left lower extremity: there is occlusive DVT of popliteal veins and peroneal veins Limited evaluation of the PTV CONCLUSIONS DVT visualized Prior CTA 08/09/24 in left popliteal and peroneal veins, patient states that he is currently on blood thinners Occlusive DVT popliteal vein and peroneal veins appears stable since CTA runoff. DVT extends above knee to distal femoral/popliteal junction. Evaluation PTV is limited Remainder LLE veins patent where visualized Notified Jewels MOHR 1500 on 09/11/24 Felipe Bray MD (Electronically Signed) Final Date: 11 September 2024 15:04 S
== END 2024-09-11 12:18 | disposition home or self-care (01) ==
PROVIDERS: PCP Family Medicine; Visit Provider Nurse Practitioner Family
DX: Z09 Encounter for follow-up examination after completed treatment for conditions other than malignant neoplasm (principal); I82.452 Acute embolism and thrombosis of left peroneal vein; I82.432 Acute embolism and thrombosis of left popliteal vein
CPT/HCPCS: 93971

== ENCOUNTER → 2024-10-26 10:38 | Outpatient (BNVA) | payer MEDICARE, SELFPAY | PROVIDERS: PCP Family Medicine; Visit Provider Internal Medicine | DX: I73.9 Peripheral vascular disease, unspecified (principal); I48.0 Paroxysmal atrial fibrillation; E11.9 Type 2 diabetes mellitus without complications; I10 Essential (primary) hypertension; Z87.891 Personal history of nicotine dependence; Z79.84 Long term (current) use of oral hypoglycemic drugs; Z79.01 Long term (current) use of anticoagulants | CPT/HCPCS: 99204 ==

== ENCOUNTER 2024-11-01 06:42 | Outpatient (CLI) | payer MEDICARE, SELFPAY ==
[2024-11-01] MEDS: diphenhydrAMINE 50 mg Capsule PO (07:20)
[2024-11-01] MEDS: aspirin 325 mg Tablet PO (07:20)
[2024-11-01 07:23] LABS: Basophils % 0.4 %; Eosinophils # 0.1 10^3/uL (0.0-0.8); Eosinophils % 1.7 %; Hematocrit 48.2 % (37-53); Lymphocytes # 1.9 10^3/uL (0.8-4.8); Lymphocytes % 26.1 %; Mean Corpuscular HGB Conc 32.2 g/dL (30-55); Mean Corpuscular Hemoglobin 28.7 pg (27-33); Mean Corpuscular Volume 89.3 fl (82-101); Mean Platelet Volume 11.4 fL (7.4-10.4); Monocytes # 0.7 10^3/uL (0.2-0.9); Neutrophils # 4.41 10^3/uL (1.8-7.7); Neutrophils % 61.5 %; Nucleated Red Blood Cells % 0 %; Platelet Count 203 10^3/cmm (157-399); Red Cell Distribution Width 12.9 % (12.1-15.1); White Blood Count 7.17 10^3/uL (3.29-11.43)
[2024-11-01 07:26] VITALS: BP 154/86; PULSE 70; RESP 16; TEMP 36.5; O2SAT 95; BMI 50.5
--- NOTE | 2024-11-01 07:30 | XACV_ITS ---
Ht: 170 cm Wt: 147 kg BSA: 2.72 m2 Any Known Allergies: Other Gender: Male : 1955 Exam Type: Invasive Peripheral Vascular Procedure(s): Procedure Description: Diagnostic procedure Procedure Description: Peripheral Cath Diagnostic Procedure Procedure Description: Abdominal aortic angiography Procedure Description: Lower extremities' angiography Procedure Description: Peripheral vascular Intervention Procedure Description: PV Balloon Procedure Description: Miscellaneous Procedure Description: Angio-Seal Procedure Description: ACT Exam Priority: Routine Lower Extremity Diagnostic Findings INDICATION: Severe lifestyle limiting claudication. Left lower extremity findings: Left common iliac artery is patent. Left external iliac artery is patent. Left common femoral artery is patent. Left profunda artery is patent. Left SFA has subintimal distal vessel prior stents with severe 90% instent restenosis. SFA luminal prior stent is totally occluded. Popliteal artery is patent. Below the knee has 3 vessel runoff. Right lower extremity findings: Right common iliac artery is patent. Right external ililac artery is patent. Right common femoral artery is patent. Right profunda artery is patent. Right SFA is patent. 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 Below the knee has good 3 vessel run off to foot. Left Distal Superficial Femoral Artery: 70% stenosis. Lower Extremity Interventional Findings Procedure details: After diagnostic images were obtained, we switched 6 Fr short sheath to 6 fr long cook sheath which went up and over from right side to left external iliac artery. We then used glidewire to cross severe instent restenosis of the SFA stents. This was followed by balloon angioplasty with 7.0x 60mm Lutonix drug coated balloon. At this time final angiogram was performed that showed excellent stent expansion, no residual stenosis and brisk blood flow. Glidewire was removed. Patient left the blood bank laboratory technician in a stable conditions. Left Distal Superficial Femoral Artery: 90% stenosis treated with Lutonix 035 7.0 MMX 60MM. Conclusions There is severe left lower extremity disease with critical instent restenosis of the left SFA s/p successful revascularization with balloon angioplasty with drug coated balloon. Left Distal Superficial Femoral Artery was treated with Balloon. Recommendations Continue eliquis and plavix. Outpatient cardiology follow up in 2 weeks. Hemodynamic Data Phase:Rest AO : 137.0 / 66.0 ( 90.0 ) @ 9:06:00 AM Access Site Site: Right Femoral artery Sheath Size: 6 Fr Hemost... Method: Angio-Seal VIP ([facility]) Hemost... Success: Successful Procedure Details Findings Procedure Consent Obtained. Admit Source: Out Patient. Pre-Procedure Time Out. Identified patient by full name and date of as verbalized by the patient/guarantor. Does the consent match the physician's order: Yes. Accurate & Complete Informed Consent: Yes. Inpatient/Outpatient History & Physical on Chart: Yes. If H&P is completed, is and addenduem needed: No; If yes, is the addendum complete: N/A. Visualize and Verify Site with Patient/Guarantor: N/A. Relevant Radiology Images available: Yes. The risks, benefits, and alternatives of sedation and/or procedure were discussed by physician. The patient agrees to continue. Procedure started. Physician arrived. Correct patient, site and procedure confirmed by cath team. Current diagnosis: PAD. PERRLA. Strong, equal hand chairman president and chief executive officer bilaterally. Lungs clear x 5 lobes. IV Site on Arrival: 20 gauge in the left anticubital. IV Fluids: 0.9% NaCl at KVO. 0 mL infused prior to blood bank laboratory technician. Pre Procedural Pulses: bilateral dorsalis pedis was Doppled. Pre Procedural Pulses: bilateral posterior tibial was Doppled. Pre Procedural Pulses: bilateral radial was 3+. Oxygen started at 2liters/min via nasal canula. bilateral groins was prepped with chloroprep then draped in the usual sterile fashion. Baseline sample Acquired. HR: 58 BPM. Immediate Pre-Procedure Time Out. Correct Patient: Yes; Correct Procedure: Yes; Correct Site: Yes; Correct Patient Position: Yes; Correct Supplies: Yes; Dried Flammable Prep: Yes; Blood Products Available: No;. Lidocaine 1% infiltrated to the right groin. Ultrasound obtained to assist with arterial access. Arterial access obtained with micropuncture set. A 5Fr UF catheter in over wire. Abdominal aortogram performed in AP @ 10 mL/sec for a total of 30 mL. Glidewire in through UF catheter. Glidewire parked in distal SFA. UF catheter out over glidewire. Lidocaine 1% infiltrated to the right groin. Sheath upsized to a 6 Fr. Left common femoral selected and arteriogram with runoff performed @ 10 mL/sec for a total of 30 mL. Glidewire advanced across the Lesion in the distal SFA, Left Side. Left common femoral selected and arteriogram of the distal SFA, Popliteal and TPT, left performed using digital subtraction @ 10 mL/sec for a total of 20 mL. Inflation number : 1 A Lutonix 035 7.0 MMX 60MM was prepped and advanced across the Distal Superficial Femoral, Left , then inflated to 8 LILLIE for 2:01 seconds. EXP 11/29/2025 LOT # [id number]. Balloon out over the wire. Results checked. Wire out. Sheath exchanged for a short 6 Fr Sheath. Right common femoral selected and arteriogram with runoff performed @ 10 mL/sec for a total of 30 mL. ACT drawn. Results 256 seconds. Therapeutic limits - pre-heparin administration 90-150 seconds and monitoring heparin during a vascular procedure >250 seconds. Post Procedure: Pulses reassessed and unchanged. PERRLA. Strong, equal hand chairman president and chief executive officer bilaterally. No VTE prophylaxis required. Total IV fluids: 40 mL. Post-op diagnosis: Severe ISR of the distal SFA STENT; s/p drug coated balloon angioplasty. Complications: None. A Right femoral angiogram was performed to determine safe placement of closure device. Fluoro: 7:02. A Angio-Seal VIP ([facility]) was successful obtaining hemostatsis at the Right Femoral artery insertion site. Angioseal placed without complications. No signs or symptoms of hematoma noted. Sterile dressing applied per usual sterile fashion. EXP 05/11/2025 LOT [id number]. Physician review of films. Physician Scrubbed out. Medication's Wasted: Lidocaine 1% = 10 mL. Contrast type used: Visipaque 320 mgI/mL, 200 mL bottle. [id number]. Estimated blood loss: 5mL-10mL. Responsiveness - Normal response to verbal stimuli; alert and oriented, PERRLA. Airway - Unaffected, no intervention required; spontaneous ventilation. Circulation: W/N/L, pulses unchanged. Nausea/Vomiting: No. Procedure completed. Patient transferred by bed to 1st floor. Vital chart was stopped. Procedure Medications Start: 8:50 AM Stop: 8:50 AM Medication: Insulin R Amount: 10 units Route: S.Q. Start: 8:52 AM Stop: 8:52 AM Medication: Versed Amount: 1 mg Route: I.V. Start: 8:52 AM Stop: 8:52 AM Medication: Fentanyl Amount: 50 mcg Route: I.V. Start: 9:03 AM Stop: 9:03 AM Medication: Fentanyl Amount: 25 mcg Route: I.V. Start: 9:19 AM Stop: 9:19 AM Medication: Versed 1 mg and Fentanyl 25 mcg Amount: 1 Route: I.V. Start: 9:26 AM Stop: 9:26 AM Medication: Heparin Amount: 93147 units Route: I.V. I, the attending physician, have reviewed and verified all procedure medications. Yes, all medications given per verbal order History/Risk Factors Hypertension: Yes Dyslipidemia: Yes Peripheral Arterial Disease (PAD): Yes Obesity: Yes Renal Disease: No Tobacco Use: Former Prior Interventions PCI: No CABG: No Valve Surgery: No Report Signatures Finalized by Ladarius Willson MD on 11/18/2024 07:29 PM
[2024-11-01 07:37] LABS: Anion Gap 16.5 (5-19); Blood Urea Nitrogen 21 mg/dL (8-23); Calcium 9.5 mg/dL (8.5-10.5); Carbon Dioxide 26 mmol/L (22-29); Chloride 99 mmol/L (98-107); Glomerular Filtration Rate 83.9 mL/min (90-130); Glucose 405 mg/dL (65-115); Osmolality Calculated 304 mOsm/kg (285-295); Potassium 4.5 mmol/L (3.5-5.1); Sodium 137 mmol/L (136-145)
--- NOTE | 2024-11-01 08:55 | W.PM.OPSUD ---
Surgery/Procedure H&P Update DATE OF PROCEDURE: November 01, 2024 DATE H&P PERFORMED: 10/26/24 H&P UPDATE INFORMATION: I have reviewed H&P completed within last 30 days, I have examined patient prior to procedure and No changes to prior documentation PREOP DIAGNOSIS: Severe lifestyle limited claudication PRIMARY INDICATION FOR PROCEDURE: Severe lifestyle limited claudication PLANNED PROCEDURE: Operation Date: 11/01/24 08:30 Proposed Procedures p Peripheral Diagnostic - Periph Angio Bilat(Bilateral) - Ladarius Willson M.D Possible percutaneous intervention PATIENT REASSESSED PRIOR TO SEDATION, WITH NO CHANGE NOTED: Yes PHYSICAL EXAM: alert, oriented x 3, clear to auscultation bilaterally and regular rate & rhythm AIRWAY EVAL/ANESTHESIA PLAN: normal airway, ASA III, Local Anesthesia, Risks, benefits & alternatives of sedation and/or procedure discussed and Patient agrees to continue as planned ADDITIONAL INFORMATION: Moderate sedation
[2024-11-01 10:13] VITALS: BP 113/64; PULSE 58; RESP 16
[2024-11-01 10:15] VITALS: BP 113/64; PULSE 58; RESP 20
--- NOTE | 2024-11-01 10:16 | PM.PROC ---
Procedure Note: Date of procedure: 11/01/24 Pre-procedure diagnosis: Severe lifestyle limiting claudication Post-procedure diagnosis: other (Severe distal SFA in-stent restenosis s/p intervention with balloon angioplasty) Procedure: Distal SFA has prior stents with severe in-stent restenosis. s/p successful revascularization with 7.0 x60mm drug coated balloon angioplasty. Performing Provider: Ladarius Willson Estimated blood loss (mL): 10 Complications: None Condition: stable Disposition: floor Coding Level of Care Code Acute Code for Amy Salomon
--- NOTE | 2024-11-01 10:20 | PC.NURSE ---
Patient received from shift lab technician s/p peripheral angiogram with right femoral access. Dressing in place remains c,d,i without s/s of bleeding or hematoma formation. Instructed patient on site care and restrictions with potential time for ambulation. Patient verbalized complete understanding.
[2024-11-01 10:27] VITALS: BP 113/71; PULSE 56; RESP 16
[2024-11-01 12:03] LABS: Glucose Point of Care 246 mg/dL (70-110)
[2024-11-01] MEDS: insulin lispro 100 unit/1 mL SUBCUT ×3 (12:27→21:05)
[2024-11-01] MEDS: clopidogrel 300 mg Tablet PO (12:54)
--- NOTE | 2024-11-01 12:58 | PC.NURSE ---
Fluids not started at this time due to patient refusing until he can get up. Jewels Stubbs NP was here and was notified.
[2024-11-01 16:29] VITALS: BP 126/77; PULSE 61; RESP 16; TEMP 36.7; O2SAT 97
[2024-11-01 16:40] LABS: Glucose Point of Care 277 mg/dL (70-110)
[2024-11-01 17:41] VITALS: PULSE 66
[2024-11-01 20:55] LABS: Glucose Point of Care 392 mg/dL (70-110)
[2024-11-01] MEDS: apixaban 5 mg Tablet PO (21:05)
[2024-11-02 00:26] VITALS: BP 116/52; PULSE 62; RESP 22; TEMP 36.9; O2SAT 98
[2024-11-02 04:19] LABS: Basophils % 0.3 %; Eosinophils # 0.2 10^3/uL (0.0-0.8); Eosinophils % 1.7 %; Hematocrit 42.1 % (37-53); Lymphocytes # 2.2 10^3/uL (0.8-4.8); Lymphocytes % 24.7 %; Mean Corpuscular HGB Conc 32.1 g/dL (30-55); Mean Corpuscular Volume 90.5 fl (82-101); Mean Platelet Volume 11.2 fL (7.4-10.4); Monocytes # 0.8 10^3/uL (0.2-0.9); Neutrophils # 5.68 10^3/uL (1.8-7.7); Neutrophils % 64.1 %; Nucleated Red Blood Cells % 0 %; Platelet Count 161 10^3/cmm (157-399); Red Blood Count 4.65 10^6/uL (3.85-5.65); Red Cell Distribution Width 13.2 % (12.1-15.1); White Blood Count 8.87 10^3/uL (3.29-11.43)
[2024-11-02 04:51] LABS: Blood Urea Nitrogen 20 mg/dL (8-23); Calcium 8.8 mg/dL (8.5-10.5); Carbon Dioxide 23 mmol/L (22-29); Chloride 102 mmol/L (98-107); Glomerular Filtration Rate 96.1 mL/min (90-130); Glucose 256 mg/dL (65-115); Osmolality Calculated 295 mOsm/kg (285-295); Sodium 137 mmol/L (136-145)
[2024-11-02 04:55] LABS: Anion Gap 16.9 (5-19); Potassium 4.9 mmol/L (3.5-5.1)
[2024-11-02 05:00] VITALS: BP 128/73; PULSE 63; RESP 18; TEMP 36.9; O2SAT 98
[2024-11-02 06:07] LABS: Glucose Point of Care 268 mg/dL (70-110)
[2024-11-02 07:52] VITALS: BP 158/83; PULSE 64; RESP 18; TEMP 36.5; O2SAT 93
[2024-11-02] MEDS: insulin lispro 100 unit/1 mL SUBCUT (08:47)
[2024-11-02] MEDS: apixaban 5 mg Tablet PO (08:47)
[2024-11-02] MEDS: clopidogrel 75 mg Tablet PO (08:47)
--- NOTE | 2024-11-02 09:04 | PC.NURSE ---
Dressing to right groin remains c,d,i without s/s of bleeding or hematoma formation observed. Patient reports feeling well and ready to go home.
--- NOTE | 2024-11-02 10:09 | P.SS_ITS ---
<Statement entered by Ladarius Willson M.D - 11/02/24 22:31> Patient was evaluated and cared for in conjunction with an advanced practice practitioner. I personally examined the patient and reviewed the chart and all pertinent data including imaging, telemetry, and laboratory results. I discussed the patient in detail with the advanced practice practitioner. Please see their note for short stay summary, results and agreed upon plan of care for the patient. GENERAL: Patient is alert and oriented HEART: Regular S1 and S2 LUNGS: Clear to auscultation bilaterally EXTREMITIES: Lower extremities with no edema Short Stay Summary Providers Date of Admit/Discharge: 11/02/24 Attending Provider: Ladarius Willson M.D Primary Care Provider: Quinton Young Chief Complaint: I73.9 HPI History of Present Illness Regis Fuentes is a 68 year old male with past medical history of diabetes, PAD, hypertension. He was brought yesterday for peripheral angiogram due to lifestyle limiting claudication, found to have severe distal SFA in-stent restenosis treated with drug-coated balloon angioplasty. Review of Systems Card: Denies: chest pain, palpitations, irregular heart rhythm, edema, swelling of feet/ankles, lightheadedness, syncope, pre-syncope, dyspnea on exertion, orthopnea or leg pain with exertion Resp: Denies: dyspnea, productive cough or non-productive cough GI: Denies: hematochezia : Denies: hematuria Skin/Breast: Reports: surgical incision Imtch/Lymph: Denies: easy bleeding Home Meds/Allergies Home Medications and Allergies Home Medications ?Medication ?Instructions ?Recorded ?Confirmed ?Type fluticasone propionate 50 1 spray intranasal BID PRN a llergy 07/14/20 10/31/24 History mcg/actuation nasal symptoms spray,suspension (Flonase Allergy Relief) lisinopril 5 mg tablet 5 mg PO QPM 07/14/20 5 History meclizine 25 mg tablet 25 mg PO PRN PRN dizziness 1 09/13/19 10/31/24 History metformin 1,000 mg tablet 1,000 mg PO BID 07/14/2001/20 History simvastatin 20 mg tablet 20 mg PO BEDTIME 07/14/20 History epinephrine 0.3 mg/0.3 mL 0.3 mg IM PRN 01/27/2110/31 History injection, auto-injector (EpiPen) multivitamin 1 tab PO DAILY 01/27/2101/20 History ropinirole 3 mg tablet 5 mg PO BEDTIME see pharmacy 01/27/21 10/31/24 History comments metoprolol tartrate 25 mg tablet 37.5 mg PO BID 10/31/24 History furosemide 20 mg tablet 20 mg PO DAILY 10/26/2401/20 History gabapentin 100 mg capsule 100 mg PO BID 10/26/2410/31 History Allergies Allergy/AdvReac Type Severity Reaction Status Date / Time Penicillins Allergy ALGY-Anaphy Verified 11/01/24 07:33 laxis venom-wasp Allergy Unknown Verified 11/01/24 07:33 PFSH Acute PFSH: Medical History Peripheral arterial disease with history of revascularization Mass of chest wall, left Myocardial bridge Afib onset 01/2021- not anticoagulated due to cost of medication Dyslipidemia Diabetes mellitus HTN (hypertension), benign Surgical History History of rectal surgery H/O circumcision H/O colonoscopy (07/29/20) Family History Other CAD (coronary artery disease) Cancer Diabetes Hypertension Denies family history of Anesthesia complication Bleeding disorder Social History Smoking and tobacco/nicotine status: former use of tobacco/nicotine Alcohol intake: current Alcohol intake frequency: holidays/special occasions only Substance/Drug Use: never Household members: spouse Marital status: Current occupational status: disabled Vitals/I&O/Wt Last Vital Signs Temp 97.7 F 11/02/24 07:52 Pulse 64 11/02/24 07:52 Resp 18 11/02/24 07:52 BP 158/83 11/02/24 07:52 Pulse Ox 93 11/02/24 07:52 O2 Del Method Room Air 11/02/24 07:52 Weight last 48 hrs Weight 323 lb Physical Exam Const: COMMON NORMALS: no acute distress and patient oriented x3 GENERAL APPEARANCE: cooperative ORIENTATION/CONSCIOUSNESS: Yes awake, Yes oriented to person, Yes oriented to place and Yes oriented to time Chest: COMMONS NORMALS: normal inspection of the chest and normal palpation of entire chest wall CHEST: Yes Symmetrical chest wall rise Resp: COMMON NORMALS: normal respiratory effort, No retractions, No use of accessory muscles and clear to auscultation bilaterally AUSCULTATION: clear to auscultation bilaterally Cardio: COMMON NORMALS: regular rate, regular rhythm, S1 normal heart sound present, S2 normal heart sound present, No gallops present (Cardio), No clicks present (Cardio), No murmurs present (Cardio) and No rub (Cardio) RATE: regular rate RHYTHM: regular rhythm HEART SOUNDS: S1 normal heart sound present and S2 normal heart sound present PERIPHERAL PULSES: radial pulses present positive right 2+ and femoral pulses present positive right 2+ Extremity: GENERAL: Yes edema (1-2+ pitting edema bilateral ankles) Neuro: COMMON NORMALS: patient oriented x3 and moves all extremities SENSORIUM/ORIENTATION: Yes oriented to person, Yes oriented to place and Yes oriented to time Skin: WOUNDS: Yes surgical site (no hematoma palpable) Details: no odor Hospital Course Hospital Course He underwent drug-coated balloon angioplasty of the left SFA yesterday. Right femoral cath site is flat, mild tenderness present but no pain. He has received 2 doses of apixaban with no signs of oozing or bleeding in the right groin. He has ambulated in the hallway without difficulty. Discharge Summary Plan to discharge home today. Continue Plavix, Eliquis 5 mg twice a day. He can resume Lasix, metoprolol, lisinopril and simvastatin at discharge. He should hold metformin until Tuesday. No lifting over 5 pounds for the next 3 days. Follow-up in the cardiology clinic with the cardiology WAREHOUSE ASSOCIATE DRIVER in 7 to 10 days. SSS Data Data Completed and Pending: Pending at discharge Category Date Time Status ANESTHESIOLOGIST PHYSICIAN request for service Routin e Exams 11/01/24 07:30 Taken Discharge Plan Discharge Patient Disposition: Home Prescriptions: New clopidogrel 75 mg Tablet 75 mg PO DAILY Qty: 90 3RF Continued lisinopril 5 mg tablet 5 mg PO QPM simvastatin 20 mg tablet 20 mg PO BEDTIME meclizine 25 mg tablet 25 mg PO PRN PRN (Reason: dizziness) fluticasone propionate [Flonase Allergy Relief] 50 mcg/actuation spray,suspension 1 spray intranasal BID PRN (Reason: allergy symptoms) Rx Instructions: administer into each nostril (DME) FreeStyle Slime 2 Sensor Kit See Rx Instructions .Route Qty: 1 3RF Rx Instructions: As directed metoprolol tartrate 25 mg tablet 37.5 mg PO BID furosemide 20 mg tablet 20 mg PO DAILY gabapentin 100 mg capsule 100 mg PO BID apixaban 5 mg tablet 5 mg PO BID Qty: 120 1RF [place] 10 mcg/dose(250 mcg/mL) 2.4 mL pen injector See Rx Instructions .ROUTE .COMPLEX Qty: 2.4 3RF Dose Instruction: INJECT 10 mcg SUBCUTANEOUSLY TWICE DAILY; BEFORE LUNCH AND dinner Rx Instructions: INJECT 10 mcg SUBCUTANEOUSLY TWICE DAILY; BEFORE LUNCH AND dinner multivitamin Tablet 1 tab PO DAILY ropinirole 3 mg tablet 5 mg PO BEDTIME epinephrine [EpiPen] 0.3 mg/0.3 mL Auto-Injector 0.3 mg IM PRN Held metformin 1,000 mg tablet 1,000 mg PO BID Hold Instructions: Resume on 11/04/24. Discharge Orders: Discharge Order (Routine); Ordered 11/02/24 Ordered By: Jewels Stubbs Referrals: Echo Andre NP [Nurse Practitioner] - 7-10 days Quinton Young [Primary Care Provider] - Diet: Advance as tolerated Activity: Increase activity as tolerated Patient Instructions: Peripheral Vascular Stent Placement (DC), Peripheral Vascular Angioplasty (DC), Opioid Safety (DC), Post Angiogram Home Care Instructions Activity Restrictions/Additional Instructions: No lifting over 5 pounds for the next 3 days. Print Language: French Attestations Medical Necessity Statement*: Discharge home today Time Spent in Patient Care*: less than 30 min Quality Metrics Clinical Quality Measures: [ No reported AMI, CVA or VTE this stay ] Coding Level of Care Code Acute Code for Chg Fwd
--- NOTE | 2024-11-02 10:44 | PC.NURSE ---
Patient discharged to home. Instructions for follow up appointments, medications and site care instructions given to patient. Patient verbalized complete understanding. New Medication transmitted to [place], [place]. Patient insisted on ambulation at discharge to private vehicle. Dressing to right groin remains c,d,i without s/s of bleeding or hematoma formation observed. Patient denies pain or other needs.
== END 2024-11-02 10:48 | disposition home or self-care (01) ==
LOC: CCL 06:43 → CSU 19:15
PROVIDERS: Nurse Practitioner Family; PCP Family Medicine; Visit Provider Internal Medicine
DX: I70.212 Atherosclerosis of native arteries of extremities with intermittent claudication, left leg (principal); T82.856A Stenosis of peripheral vascular stent, initial encounter; I48.0 Paroxysmal atrial fibrillation; E11.9 Type 2 diabetes mellitus without complications; I10 Essential (primary) hypertension; Z79.82 Long term (current) use of aspirin; Z79.02 Long term (current) use of antithrombotics/antiplatelets; Z79.01 Long term (current) use of anticoagulants; Q24.5 Malformation of coronary vessels; Z82.49 Family history of ischemic heart disease and other diseases of the circulatory system; Z87.891 Personal history of nicotine dependence; E78.5 Hyperlipidemia, unspecified; E66.9 Obesity, unspecified; Z68.43 Body mass index [BMI] 50.0-59.9, adult
CPT/HCPCS: 36415; 36416; 37224; 75625; 75716; 80048; 82962; 85025; 85347; 96372; 96374; 99152; 99153; C1760; C1769; C1887; C1894; C2623; G0269; J1644; J1815; J2250; J3010; J7030; J9999; Q0163; Q9967

== ENCOUNTER → 2024-11-06 09:43 | Outpatient (BNVA) | payer MEDICARE, SELFPAY | PROVIDERS: PCP Family Medicine; Visit Provider Podiatrist Foot & Ankle Surgery | DX: E11.42 Type 2 diabetes mellitus with diabetic polyneuropathy (principal); L60.3 Nail dystrophy; Q82.8 Other specified congenital malformations of skin; G62.9 Polyneuropathy, unspecified; I73.9 Peripheral vascular disease, unspecified; Z79.84 Long term (current) use of oral hypoglycemic drugs | CPT/HCPCS: 11055; 11721; 99203 ==

== ENCOUNTER → 2024-11-16 08:57 | Outpatient (BNVA) | payer MEDICARE, SELFPAY | PROVIDERS: PCP Family Medicine; Visit Provider Internal Medicine | DX: E16.0 Drug-induced hypoglycemia without coma (principal); E11.9 Type 2 diabetes mellitus without complications; I10 Essential (primary) hypertension; E78.5 Hyperlipidemia, unspecified | CPT/HCPCS: 99214 ==

== ENCOUNTER → 2025-01-08 10:35 | Outpatient (BNVA) | payer MEDICARE, SELFPAY | PROVIDERS: PCP Family Medicine; Visit Provider Podiatrist Foot & Ankle Surgery | DX: E11.42 Type 2 diabetes mellitus with diabetic polyneuropathy (principal); L60.3 Nail dystrophy; L84 Corns and callosities; I87.332 Chronic venous hypertension (idiopathic) with ulcer and inflammation of left lower extremity; I87.331 Chronic venous hypertension (idiopathic) with ulcer and inflammation of right lower extremity; Q82.8 Other specified congenital malformations of skin; G62.9 Polyneuropathy, unspecified; I73.9 Peripheral vascular disease, unspecified; E11.9 Type 2 diabetes mellitus without complications; I87.8 Other specified disorders of veins; L03.116 Cellulitis of left lower limb; L03.115 Cellulitis of right lower limb | CPT/HCPCS: 11055; 11721; 29581; 99214 ==

== ENCOUNTER → 2025-01-15 14:35 | Outpatient (BNVA) | payer MEDICARE, SELFPAY | PROVIDERS: PCP Family Medicine; Visit Provider Podiatrist Foot & Ankle Surgery | DX: L60.3 Nail dystrophy (principal); Q82.8 Other specified congenital malformations of skin; G62.9 Polyneuropathy, unspecified; I73.9 Peripheral vascular disease, unspecified; E11.9 Type 2 diabetes mellitus without complications; I87.8 Other specified disorders of veins; E11.42 Type 2 diabetes mellitus with diabetic polyneuropathy; Z79.84 Long term (current) use of oral hypoglycemic drugs; Z79.4 Long term (current) use of insulin | CPT/HCPCS: 99213 ==

== ENCOUNTER → 2025-02-13 08:09 | Outpatient (BNVA) | payer MEDICARE, SELFPAY | PROVIDERS: PCP Family Medicine; Visit Provider Internal Medicine | DX: E11.9 Type 2 diabetes mellitus without complications (principal); E16.0 Drug-induced hypoglycemia without coma; I10 Essential (primary) hypertension | CPT/HCPCS: 80053; 80061; 82043; 83036 ==

== ENCOUNTER 2025-02-16 19:28 | Emergency (ER) | payer MEDICARE, SELFPAY ==
[2025-02-16 19:39] VITALS: BP 139/65; PULSE 73; RESP 18; TEMP 37.4; O2SAT 93; BMI 47.7
--- NOTE | 2025-02-16 19:53 | USR_ITS ---
PROCEDURE INFORMATION: Exam: US Duplex Left Lower Extremity Veins, Limited Exam date and time: 02/16/2025 8:17 PM Age: 69 years old Clinical indication: Pain; Leg, lower; Left; Additional info: Red, weeping, pain, swelling TECHNIQUE: Imaging protocol: Real-time duplex ultrasound of the left extremity with 2-D hall scale, color Doppler flow and spectral waveform analysis including responses to compression and other maneuvers (when performed) with image documentation. Limited exam focused on the left lower extremity veins. COMPARISON: CT angio abd aorta runof [id number] 08/09/2024 10:24 AM FINDINGS: Left deep veins: Unremarkable. The common femoral, femoral, proximal profunda femoral and popliteal veins are patent without thrombus. Normal Doppler waveforms. Normal compressibility and/or augmentation response. Superficial veins: Greater saphenous vein at the saphenofemoral junction is patent without thrombus. Soft tissues: Soft tissue edema noted. US/CV venous duplex [facility] [id number] IMPRESSION: No evidence of deep vein thrombosis.
--- NOTE | 2025-02-16 19:55 | W.ED.EXTPRO ---
HPI - Extremity Problem General: Chief complaint: Extremity Injury, Lower Stated complaint: left leg weeping/sores, pain Time Seen by Provider: 02/16/25 19:37 History of Present Illness: Patient is a 69-year-old male with history of previous peripheral stents to left leg, cellulitis, that presents with a weeping red left lower extremity with superficial wounds. This is worse than baseline. Temperature was 99.3 ?F in triage. Admits to pain with ambulation. States he has a wound to his right anterior mid leg and posterior medial mid leg. He has been dressing this. This has been followed by his chassis wirer that placed peripheral stents. Patient denies long sitting issues or long car ride. No history of carcinoma as per patient. He states compliance to his apixaban, clopidogrel, Lasix Associated symptoms: Deny chest pain, fever(s) or rash Related Data Home Medications ?Medication ?Instructions ?Recorded ?Confirmed fluticasone propionate 50 1 spray intranasal BID PRN allergy 07/14/20 01/15/25 mcg/actuation nasal symptoms spray,suspension (Flonase Allergy Relief) lisinopril 5 mg tablet 5 mg PO QPM 07/14/20 01/15/25 meclizine 25 mg tablet 25 mg PO PRN PRN dizziness 07/14/20 01/15/25 metformin 1,000 mg tablet 1,000 mg PO BID 07/14/20 01/15/25 Held on 11/02/24. Instructions: Resume on 11/04/24. simvastatin 20 mg tablet 20 mg PO BEDTIME 07/14/20 01/15/25 epinephrine 0.3 mg/0.3 mL 0.3 mg IM PRN 01/27/21 01/15/25 injection, auto-injector (EpiPen) multivitamin 1 tab PO DAILY 01/27/21 01/15/25 ropinirole 3 mg tablet 5 mg PO BEDTIME see pharmacy 01/27/21 01/15/25 comments metoprolol tartrate 25 mg tablet 37.5 mg PO BID 10/13/23 01/15/25 furosemide 20 mg tablet 20 mg PO DAILY 10/26/24 01/15/25 gabapentin 100 mg capsule 100 mg PO BID 10/26/24 01/15/25 doxycycline hyclate 100 mg capsule mg PO 05/13/25 05/20/25 Previous Rx's ?Medication ?Instructions ?Recorded flash glucose sensor (FreeStyle #1 ea 08/04/21 Slime 2 Sensor kit) clopidogrel 75 mg tablet 75 mg PO DAILY #90 tabs 11/02/24 insulin glargine 100 unit/mL (3 30 unit (0.3 mL) SUBCUT DAILY #15 11/16/24 mL) subcutaneous pen (Lantus mL Solostar U-100 Insulin) liraglutide 0.6 mg/0.1 mL (18 mg/3 1.8 mg (0.3 mL) SUBCUT Q24H #9 mL 11/16/24 mL) subcutaneous pen injector (Victoza 3-Kye) apixaban 5 mg tablet 5 mg PO BID #120 tabs 11/26/24 doxycycline hyclate 100 mg capsule 100 mg PO BID 14 days #28 caps 02/16/25 Allergies Allergy/AdvReac Type Severity Reaction Status Date / Time Penicillins Allergy ALGY-Anaphy Verified 01/15/25 14:45 laxis venom-wasp Allergy Unknown Verified 01/15/25 14:45 Review of Systems General: Reports: 10 or more systems reviewed and unremarkable except in HPI and below Const: Denies: fever(s) or chills ENMT: Denies: throat pain Card: Denies: chest pain or palpitations GI: Denies: abdominal pain, nausea or vomiting : Denies: flank pain or difficulty urinating Musc: Reports: extremity pain, extremity swelling and joint swelling Skin/Breast: Reports: erythema and skin swelling; Denies: rash or pruritus Neuro: Denies: headache(s), numbness in extremities or sensory changes Psych: Denies: anxiety or depression Mitch/Lymph: Denies: easy bruising or easy bleeding All/Imm: Denies: urticaria or throat swelling PFSH ED PFSH: Medical History Peripheral arterial disease with history of revascularization Mass of chest wall, left Myocardial bridge Afib onset 01/2021- not anticoagulated due to cost of medication Dyslipidemia Diabetes mellitus HTN (hypertension), benign Surgical History History of rectal surgery H/O circumcision H/O colonoscopy (07/29/20) Family History Other CAD (coronary artery disease) Cancer Diabetes Hypertension Denies family history of Anesthesia complication Bleeding disorder Social History Smoking and tobacco/nicotine status: never used tobacco/nicotine Alcohol intake: current Alcohol intake frequency: holidays/special occasions only Substance/Drug Use: never Household members: spouse Marital status: Current occupational status: disabled Physical Exam Const: COMMON NORMALS: no acute distress, patient oriented x3 and alert GENERAL APPEARANCE: cooperative NUTRITIONAL APPEARANCE: obese morbidly obese ORIENTATION/CONSCIOUSNESS: Yes awake, Yes oriented to person and Yes oriented to place HENMT: COMMON NORMALS: normocephalic and atraumatic HEAD & SCALP: normocephalic and atraumatic MOUTH: Normal oral and palatal mucosa present Neck/C-Spine: COMMON NORMALS: full ROM and no lymphadenopathy Lymph: LYMPHATIC: no lymphadenopathy noted Resp: COMMON NORMALS: normal respiratory effort and clear to auscultation bilaterally AUSCULTATION: clear to auscultation bilaterally Cardio: COMMON NORMALS: regular rate and regular rhythm RATE: regular rate RHYTHM: regular rhythm GI: COMMON NORMALS: Normal to inspection, nondistended, normoactive bowel sounds present, Soft to palpation and non-tender PALPATION: Yes Soft to palpation : COMMON NORMALS: Yes no CVA tenderness BLADDER/KIDNEY EXAM: Yes no CVA tenderness Back/Pelvis: COMMON NORMALS: no CVA tenderness Extremity: COMMON NORMALS: full ROM and capillary refill normal GENERAL: Yes edema and Yes hypertrophy LEFT LOWER EXTREMITY: Yes lower leg Neuro: COMMON NORMALS: patient oriented x3 SENSORIUM/ORIENTATION: Yes alert, Yes oriented to person and Yes oriented to place Skin: GENERAL SKIN EXAM: erythema (left only), fluctuance (left only) and hypertrophy (left only) WOUNDS: Yes wounds noted drainage serous and with surrounding erythema (left lower distal leg) Course Vital Signs: Vital signs: Vital Signs Temperature 99.3 F 02/16/25 19:39 Pulse Rate 67 02/16/25 20:56 Respiratory Rate 16 02/16/25 20:56 Blood Pressure 134/54 02/16/25 20:56 Pulse Oximetry 96 02/16/25 20:56 Oxygen Delivery Me thod Room Air 02/16/25 19:39 MDM - Extremity (Nontraumatic) Medical Decision Making Patient is a 69-year-old gentleman with a left leg that has edema, redness, pain, weeping wound. Ultrasound was negative for DVT. Wound has been dressed. Patient be placed on doxycycline given his penicillin allergy (Augmentin was going to be preferred). For preferred MSSA coverage (unable to obtain culture given this is superficial weeping in nature and 2 spots), Ancef will be given x 1 here. Doxycycline will otherwise cover for MRSA and anaerobes appropriate. I have extended the therapy to 2 weeks given the density of his left lower extremity and explained this to patient. He will follow-up with wound care. Case management is making a referral. Lab Data 02/16/25 20:03 02/16/25 20:03 Radiology Impressions Venous Duplex 02/16/25 19:53 IMPRESSION: No evidence of deep vein thrombosis. Laboratory Results WBC 9.02 10^3/uL (3.29-11.43) 02/16/25 20:03 RBC 4.37 10^6/uL (3.85-5.65) 02/16/25 20:03 Hgb 12.40 g/dL (11.27-16.99) 02/16/25 20:03 Hct 39.5 % (37-53) 02/16/25 20:03 MCV 90.4 fl (82-101) 02/16/25 20:03 MCH 28.4 pg (27-33) 02/16/25 20:03 MCHC 31.4 g/dL (30-55) 02/16/25 20:03 RDW 13.2 % (12.1-15.1) 02/16/25 20:03 Plt Count 167 10^3/cmm (157-399) 02/16/25 20:03 MPV 10.8 fL (7.4-10.4) H 02/16/25 20:03 Neut % (Auto) 67.5 % 02/16/25 20:03 Lymph % (Auto) 19.3 % 02/16/25 20:03 [place] % (Auto) 10.3 % 02/16/25 20:03 Eos % (Auto) 2.2 % 02/16/25 20:03 Baso % (Auto) 0.4 % 02/16/25 20:03 Neut # (Auto) 6.08 10^3/uL (1.8-7.7) 02/16/25 20:03 Lymph # (Auto) 1.7 10^3/uL (0.8-4.8) 02/16/25 20:03 [place] # (Auto) 0.9 10^3/uL (0.2-0.9) 02/16/25 20:03 Eos # (Auto) 0.2 10^3/uL (0.0-0.8) 02/16/25 20:03 Baso # (Auto) 0.0 10^3/uL (0.0-0.1) 02/16/25 20:03 Nucleated RBC % (auto) 0 % 02/16/25 20:03 Nucleated RBCs # 0.0 /100WBC 02/16/25 20:03 Sodium 135 mmol/L (136-145) L 02/16/25 20:03 Potassium 4.9 mmol/L (3.5-5.1) 02/16/25 20:03 Chloride 100 mmol/L (98-107) 02/16/25 20:03 Carbon Dioxide 22 mmol/L (22-29) 02/16/25 20:03 Anion Gap 17.9 (5-19) 02/16/25 20:03 BUN 20 mg/dL (8-23) 02/16/25 20:03 Creatinine 0.9 mg/dL (0.7-1.2) 02/16/25 20:03 GFR Calculation 83.7 mL/min (90-130) L 02/16/25 20:03 Glucose 346 mg/dL (65-115) H 02/16/25 20:03 Calculated Osmolality 296 mOsm/kg (285-295) H 02/16/25 20:03 Calcium 8.8 mg/dL (8.5-10.5) 02/16/25 20:03 Total Bilirubin 0.3 mg/dL (0.15-1.2) 02/16/25 20:03 AST 16 U/L (0-40) 02/16/25 20:03 ALT 17 U/L (0-41) 02/16/25 20:03 Alkaline Phosphatase 74 U/L (40-130) 02/16/25 20:03 C-Reactive Protein 59.6 mg/L (0.0-4.9) H 02/16/25 20:03 Total Protein 6.8 g/dL (6.6-8.7) 02/16/25 20:03 Albumin 3.6 g/dL (3.5-5.2) 02/16/25 20:03 Globulin 3.2 g/dL (1.3-4.6) 02/16/25 20:03 All radiology interpretation(s) finalized by discharge ED provider radiology interpretation(s): No DVT on the left Discharge Plan Discharge Patient Disposition: Home Clinical Impression: Cellulitis Qualifiers: Site of cellulitis: extremity Site of cellulitis of extremity: lower extremity Laterality: left Qualified Code(s): L03.116 - Cellulitis of left lower limb Condition: Stable Prescriptions: New doxycycline hyclate 100 mg capsule 100 mg PO BID 14 Days Qty: 28 0RF No Action lisinopril 5 mg tablet 5 mg PO QPM simvastatin 20 mg tablet 20 mg PO BEDTIME metformin 1,000 mg tablet 1,000 mg PO BID meclizine 25 mg tablet 25 mg PO PRN PRN (Reason: dizziness) fluticasone propionate [Flonase Allergy Relief] 50 mcg/actuation spray,suspension 1 spray intranasal BID PRN (Reason: allergy symptoms) Rx Instructions: administer into each nostril (DME) FreeStyle Slime 2 Sensor Kit See Rx Instructions .Route Qty: 1 3RF Rx Instructions: As directed metoprolol tartrate 25 mg tablet 37.5 mg PO BID furosemide 20 mg tablet 20 mg PO DAILY gabapentin 100 mg capsule 100 mg PO BID doxycycline hyclate 100 mg capsule PO insulin glargine [Lantus Solostar U-100 Insulin] 100 unit/mL (3 mL) insulin pen 30 unit SUBCUT DAILY Qty: 15 0RF Rx Instructions: start dosage at 5 units once daily liraglutide [Victoza 3-Kye] 0.6 mg/0.1 mL (18 mg/3 mL) pen injector 1.8 mg SUBCUT Q24H Qty: 9 0RF apixaban 5 mg tablet 5 mg PO BID Qty: 120 1RF multivitamin Tablet 1 tab PO DAILY ropinirole 3 mg tablet 5 mg PO BEDTIME epinephrine [EpiPen] 0.3 mg/0.3 mL Auto-Injector 0.3 mg IM PRN clopidogrel 75 mg Tablet 75 mg PO DAILY Qty: 90 3RF Discharge Orders: Discharge ED (Routine); Ordered 02/16/25 Ordered By: Olivia Limon Referrals: Quinton Young [Primary Care Provider, Family Practice] Discharge Diet: Diabetic and Low Salt Discharge Activity: Resume usual activity Patient Instructions: Cellulitis (ED), Lymphedema (ED) Activity Restrictions/Additional Instructions: Add probiotic daily or take active culture yogurt to avoid infectious diarrhea with use of antibiotics Follow-up with your chassis wirer that did your peripheral stents. Follow-up with wound care. Your wounds to your left lower extremity need to be followed until cleared. Wound care may consider lymphedema wraps. Case management will make a referral and contact you. Follow-up with your regular primary care physician?it is important you follow-up from this visit today. Print Language: Korean Coding Level of Care Code ED [employer]ice for Aym Salomon
[2025-02-16 20:06] VITALS: BP 150/59; PULSE 70; RESP 16; O2SAT 96
[2025-02-16 20:09] LABS: Basophils % 0.4 %; Eosinophils # 0.2 10^3/uL (0.0-0.8); Eosinophils % 2.2 %; Hematocrit 39.5 % (37-53); Lymphocytes # 1.7 10^3/uL (0.8-4.8); Lymphocytes % 19.3 %; Mean Corpuscular HGB Conc 31.4 g/dL (30-55); Mean Corpuscular Hemoglobin 28.4 pg (27-33); Mean Corpuscular Volume 90.4 fl (82-101); Mean Platelet Volume 10.8 fL (7.4-10.4); Monocytes # 0.9 10^3/uL (0.2-0.9); Monocytes % 10.3 %; Neutrophils # 6.08 10^3/uL (1.8-7.7); Neutrophils % 67.5 %; Nucleated Red Blood Cells % 0 %; Platelet Count 167 10^3/cmm (157-399); Red Blood Count 4.37 10^6/uL (3.85-5.65); Red Cell Distribution Width 13.2 % (12.1-15.1); White Blood Count 9.02 10^3/uL (3.29-11.43)
[2025-02-16 20:32] LABS: Alanine Aminotransferase 17 U/L (0-41); Albumin Level 3.6 g/dL (3.5-5.2); Alkaline Phosphatase 74 U/L (40-130); Aspartate Amino Transferase 16 U/L (0-40); Blood Urea Nitrogen 20 mg/dL (8-23); C Reactive Protein 59.6 mg/L (0.0-4.9); Calcium 8.8 mg/dL (8.5-10.5); Carbon Dioxide 22 mmol/L (22-29); Chloride 100 mmol/L (98-107); Creatinine Clr Calc Pharmacy 104.0878; Globulin 3.2 g/dL (1.3-4.6); Glomerular Filtration Rate 83.7 mL/min (90-130); Glucose 346 mg/dL (65-115); Osmolality Calculated 296 mOsm/kg (285-295); Sodium 135 mmol/L (136-145); Total Bilirubin 0.3 mg/dL (0.15-1.2); Total Protein 6.8 g/dL (6.6-8.7)
[2025-02-16 20:35] LABS: Anion Gap 17.9 (5-19); Potassium 4.9 mmol/L (3.5-5.1)
--- NOTE | 2025-02-16 20:43 | PC.NURSE ---
Cleansed lre wounds with normal saline, applied Vaseline guaze to open wounds, covered with non stick guaze and wrapped with kerlex.
[2025-02-16] MEDS: doxycycline 100 mg Tablet PO (20:54)
[2025-02-16] MEDS: ceFAZolin 1,000 mg SDV 1000 MG IVP (20:54)
[2025-02-16 20:56] VITALS: BP 134/54; PULSE 67; RESP 16; O2SAT 96
--- NOTE | 2025-02-18 09:08 | DCPLANNER ---
Message sent to wound care for follow up- Patient is a 69-year-old gentleman with a left leg that has edema, redness, pain, weeping wound. Ultrasound was negative for DVT. Wound has been dressed. Patient be placed on doxycycline given his penicillin allergy (Augmentin was going to be preferred). For preferred MSSA coverage (unable to obtain culture given this is superficial weeping in nature and 2 spots), Ancef will be given x 1 here. Doxycycline will otherwise cover for MRSA and anaerobes appropriate. I have extended the therapy to 2 weeks given the density of his left lower extremity and explained this to patient. He will follow-up with wound care. Case management is making a referral.
== END 2025-02-16 21:05 | disposition home or self-care (01) ==
PROVIDERS: Emergency Provider Physician Assistant; PCP Family Medicine
DX: L03.116 Cellulitis of left lower limb (principal); Z79.4 Long term (current) use of insulin; Z79.84 Long term (current) use of oral hypoglycemic drugs; Z79.02 Long term (current) use of antithrombotics/antiplatelets; E11.9 Type 2 diabetes mellitus without complications; I10 Essential (primary) hypertension
CPT/HCPCS: 80053; 85025; 86140; 93971; 96374; 99284; J0690; J9999

== ENCOUNTER → 2025-02-21 08:54 | Outpatient (BNVA) | payer MEDICARE, SELFPAY | PROVIDERS: PCP Family Medicine; Visit Provider Thoracic Surgery (Cardiothoracic Vascular Surgery) | DX: E11.52 Type 2 diabetes mellitus with diabetic peripheral angiopathy with gangrene (principal); E11.622 Type 2 diabetes mellitus with other skin ulcer; L97.821 Non-pressure chronic ulcer of other part of left lower leg limited to breakdown of skin | CPT/HCPCS: 97597; 99213; A6210; A6253 ==

== ENCOUNTER → 2025-02-25 15:23 | Outpatient (BNVA) | payer MEDICARE, SELFPAY | PROVIDERS: PCP Family Medicine; Visit Provider Nurse Practitioner Family | DX: I73.9 Peripheral vascular disease, unspecified (principal); Z09 Encounter for follow-up examination after completed treatment for conditions other than malignant neoplasm; I48.0 Paroxysmal atrial fibrillation; Z79.01 Long term (current) use of anticoagulants; E11.9 Type 2 diabetes mellitus without complications; Z79.4 Long term (current) use of insulin; I10 Essential (primary) hypertension | CPT/HCPCS: 99213 ==

== ENCOUNTER → 2025-02-28 08:31 | Outpatient (BNVA) | payer MEDICARE, SELFPAY | PROVIDERS: PCP Family Medicine; Visit Provider Thoracic Surgery (Cardiothoracic Vascular Surgery) | DX: E11.52 Type 2 diabetes mellitus with diabetic peripheral angiopathy with gangrene (principal); E11.622 Type 2 diabetes mellitus with other skin ulcer; L97.821 Non-pressure chronic ulcer of other part of left lower leg limited to breakdown of skin | CPT/HCPCS: 97597; A6210; A6252 ==

== ENCOUNTER → 2025-03-04 09:31 | Outpatient (BNVA) | payer MEDICARE, SELFPAY | PROVIDERS: PCP Family Medicine; Visit Provider Internal Medicine | DX: E16.0 Drug-induced hypoglycemia without coma (principal); E78.5 Hyperlipidemia, unspecified; E11.9 Type 2 diabetes mellitus without complications; I10 Essential (primary) hypertension; Z79.84 Long term (current) use of oral hypoglycemic drugs; Z79.4 Long term (current) use of insulin | CPT/HCPCS: 99214 ==

== ENCOUNTER → 2025-03-07 10:06 | Outpatient (BNVA) | payer MEDICARE, SELFPAY | PROVIDERS: PCP Family Medicine; Visit Provider Thoracic Surgery (Cardiothoracic Vascular Surgery) | DX: E11.52 Type 2 diabetes mellitus with diabetic peripheral angiopathy with gangrene (principal); E11.622 Type 2 diabetes mellitus with other skin ulcer; L97.821 Non-pressure chronic ulcer of other part of left lower leg limited to breakdown of skin; Z09 Encounter for follow-up examination after completed treatment for conditions other than malignant neoplasm | CPT/HCPCS: 97597; A6210 ==

== ENCOUNTER → 2025-06-03 10:02 | Outpatient (BNVA) | payer MEDICARE, SELFPAY | PROVIDERS: PCP Family Medicine; Visit Provider Internal Medicine | DX: E78.5 Hyperlipidemia, unspecified (principal); E11.9 Type 2 diabetes mellitus without complications; Z79.4 Long term (current) use of insulin | CPT/HCPCS: 99214 ==

== ENCOUNTER → 2025-08-27 14:19 | Outpatient (BNVA) | payer MEDICARE, SELFPAY | PROVIDERS: PCP Family Medicine; Visit Provider Internal Medicine | DX: I73.9 Peripheral vascular disease, unspecified (principal); I48.0 Paroxysmal atrial fibrillation; Z87.891 Personal history of nicotine dependence; Z79.01 Long term (current) use of anticoagulants | CPT/HCPCS: 99214 ==